=== PATIENT | female | born 1975 | race Caucasian/White ===

== ENCOUNTER → 2018-02-01 11:49 | Outpatient (CLI) | payer OTHER, SELFPAY ==
--- NOTE | 2018-02-01 11:54 | BI_ITS ---
MAMMOGRAPHY - BILATERAL SCREENING REASON FOR EXAM: Female, 42 years old. Routine annual screening examination. PERTINENT HISTORY: Non-contributory. TECHNIQUE: Digital bilateral breast zoila (3D mammographic acquisition) in the CC and MLO projections. 2-D mediolateral oblique (MLO) and craniocaudad (CC) views of both breasts were obtained. CAD: Full Field Digital Mammography with Computer Added Detection was performed. COMPARISON: Comparison is made with prior study dated December 31, 2016. FINDINGS: Breast Composition: There are scattered areas of fibroglandular density. There are no dominant masses or suspicious calcifications. No other significant abnormalities are identified. There has been no significant change since the prior study. BI/SCREENING MAMM (CAD), BILAT IMPRESSION: Stable bilateral screening mammogram. Yearly follow-up mammogram recommended. (A) ASSESSMENT CATEGORY: BIRADS Category 1: Negative. A letter regarding these results will be sent to the patient by the facility within 30 days. Approximately 10% of breast cancers are not detected by mammography. A normal mammogram should not delay biopsy of a clinically suspicious abnormality. [id number] Electronically Signed: Davi Mcgovern MD at 13:20 EST Tel [phone], Service support ,
== END ==
PROVIDERS: Family Provider Family Medicine; PCP Family Medicine; Visit Provider Nurse Practitioner Women's Health
DX: Z12.31 Encounter for screening mammogram for malignant neoplasm of breast (principal)
CPT/HCPCS: 77063; 77067

== ENCOUNTER → 2018-07-01 08:49 | Outpatient (CLI) | payer OTHER, SELFPAY ==
[2018-07-01 10:28] LABS: Hematocrit 39.3 % (37-47); Hemoglobin 12.6 g/dl (12.0-15.0); Mean Corp Hgb Conc 32.1 g/gl (32-36); Mean Corpuscular Hgb 26.1 pg (27.0-32.0); Mean Corpuscular Volume 81.4 fL (81-99); Mean Platelet Vol. 10.2 fl (6.2-12.0); Platelet Count 283 K/mm3 (150-450); RBC Distribution Width CV 13.1 % (11.6-14.6); Red Blood Count 4.83 M/mm3 (4.2-5.4)
[2018-07-01 10:35] LABS: Scan Indicated on CBC? Y/N NO
[2018-07-01 10:55] LABS: Homocysteine 8.3 umol/L (3.2-10.7)
[2018-07-01 10:56] LABS: Hemoglobin A1c 5.5 % (4.2-6.3)
[2018-07-01 11:14] LABS: Progesterone Level 0.47 ng/mL (See Comment); Vitamin B12 639 pg/mL (211-911); Vitamin D,25 Hydroxy 32.4 ng/mL (29.95-100.01)
[2018-07-01 12:12] LABS: AST(SGOT) 26 U/L (15-37); Alanine Aminotransfer ALT/SGPT 27 U/L (13-56); Albumin, Serum 3.9 g/dL (3.2-5.0); Alkaline Phosphatase 56 U/L (45-117); Anion Gap 6 (5-15); BUN 18 mg/dL (7-18); BUN/Creat Ratio 15.5 RATIO (10-20); CRP, High Sensitivity Cardiac 2.88 mg/L; Calcium,Total 8.9 mg/dL (8.5-10.1); Chloride 106 mmol/L (98-107); Cholesterol 196 mg/dL (200); Creatinine, Serum 1.16 mg/dL (0.55-1.02); EST Glomerular Filtration Rate 55 mL/min (>60); Est Glom Filt Rate - Afr Amer 66 mL/min (>60); Estradiol 43.4 pg/mL; Free T3 2.5 pg/mL (2.18-3.98); Globulin 3.8 g/dL (2.2-4.2); Glucose 90 mg/dL (74-106); High Density Lipoprotein 47 mg/dL; Iron 56 ug/dL (50-170); Luteinizing Hormone 6.1 mIU/mL; Magnesium 2.3 mg/dL (1.6-2.6); Potassium 3.9 mmol/L (3.5-5.1); Prolactin 7.7 ng/mL; Protein, Total 7.7 g/dL (6.4-8.2); Sodium Level 139 mmol/L (136-145); T4 Free Direct 1.15 ng/dL (0.76-1.46); T4 Total, Thyroxin 10.9 ug/dL (4.8-13.9); Thyroid Stim Hormone (TSH) 3.25 uIU/mL (0.358-3.74); Triglycerides 167 mg/dL; Very Low Density Lipoprotein 33 mg/dL (5-40)
[2018-07-02 09:21] LABS: Follicle Stimulating Hormone 8.5 mIU/mL
[2018-07-04 09:07] LABS: DHEA Sulfate 163.5 ug/dL (57.3-279.2); Insulin Like Growth Factor 82 ng/mL (62-204); Testosterone, % Free 1.77 % (0.50-2.80); Testosterone, Free 0.23 ng/dL (0.10-0.85); Testosterone, Total 13 ng/dL (8-48)
[2018-07-04 11:58] LABS: Sex Hormone-binding Globulin 74.6 nmol/L (24.6-122.0)
== END ==
PROVIDERS: Family Provider Family Medicine; PCP Family Medicine; Referring Provider Registered Nurse; Visit Provider Registered Nurse
DX: M62.81 Muscle weakness (generalized) (principal); R53.82 Chronic fatigue, unspecified; R45.89 Other symptoms and signs involving emotional state
CPT/HCPCS: 36415; 80053; 80061; 82306; 82533; 82607; 82627; 82670; 82746; 83001; 83002; 83036; 83090; 83540; 83735; 84144; 84146; 84270; 84305; 84402; 84403; 84436; 84439; 84443; 84481; 85027; 86141; 82626

== ENCOUNTER → 2018-10-04 07:10 | Outpatient (CLI) | payer OTHER, SELFPAY ==
[2018-10-04 10:07] LABS: Hematocrit 39.3 % (37-47); Hemoglobin 12.3 g/dL (12.0-15.0); Mean Corp Hgb Conc 31.3 g/dL (32-36); Mean Corpuscular Hgb 25.5 pg (27.0-32.0); Mean Corpuscular Volume 81.4 fL (81-99); Mean Platelet Vol. 10.6 fl (6.2-12.0); Platelet Count 226 K/mm3 (150-450); RBC Distribution Width CV 14.6 % (11.6-14.6); RBC Distribution Width SD 42.7 fl (35.1-43.9); Red Blood Count 4.83 M/mm3 (4.2-5.4); White Blood Count 5.7 K/mm3 (4.4-11.0)
[2018-10-04 10:29] LABS: Vitamin B12 405 pg/mL (211-911); Vitamin D,25 Hydroxy 51.9 ng/mL (29.95-100.01)
[2018-10-04 10:38] LABS: ALB/GLOB Ratio 0.9 RATIO (0.9-2.4); AST(SGOT) 13 U/L (15-37); Alanine Aminotransfer ALT/SGPT 18 U/L (13-56); Albumin, Serum 3.3 g/dL (3.2-5.0); Alkaline Phosphatase 50 U/L (45-117); Anion Gap 5 (5-15); BUN 18 mg/dL (7-18); BUN/Creat Ratio 19.2 RATIO (10-20); Calcium,Total 8.7 mg/dL (8.5-10.1); Chloride 110 mmol/L (98-107); Cholesterol 157 mg/dL (200); Creatinine, Serum 0.94 mg/dL (0.55-1.02); EST Glomerular Filtration Rate 70 mL/min (>60); Est Glom Filt Rate - Afr Amer 84 mL/min (>60); Estradiol 88.7 pg/mL; Free T3 4.2 pg/mL (2.18-3.98); Globulin 3.5 g/dL (2.2-4.2); Glucose 89 mg/dL (74-106); High Density Lipoprotein 51 mg/dL; Iron 19 ug/dL (50-170); Protein, Total 6.8 g/dL (6.4-8.2); Sodium Level 141 mmol/L (136-145); T4 Free Direct 0.61 ng/dL (0.76-1.46); T4 Total, Thyroxin 5.8 ug/dL (4.8-13.9); Thyroid Stim Hormone (TSH) 1.66 uIU/mL (0.358-3.74); Triglycerides 131 mg/dL; Very Low Density Lipoprotein 26 mg/dL (5-40)
[2018-10-07 09:07] LABS: Testosterone, % Free 1.03 % (0.50-2.80); Testosterone, Free 0.27 ng/dL (0.10-0.85); Testosterone, Total 26 ng/dL (8-48)
[2018-10-07 15:35] LABS: DHEA Sulfate 126.8 ug/dL (57.3-279.2)
== END ==
PROVIDERS: Family Provider Family Medicine; PCP Family Medicine
DX: R53.82 Chronic fatigue, unspecified (principal); R68.82 Decreased libido
CPT/HCPCS: 36415; 80053; 80061; 82306; 82607; 82627; 82670; 82746; 83540; 84144; 84402; 84403; 84436; 84439; 84443; 84481; 85027; 82626

== ENCOUNTER → 2019-01-13 08:07 | Outpatient (CLI) | payer OTHER, SELFPAY ==
[2018-12-27 08:19] VITALS: BMI 29.7
[2019-01-13 10:09] LABS: Hematocrit 44.9 % (37-47); Hemoglobin 14.7 g/dL (12.0-15.0); Mean Corp Hgb Conc 32.7 g/dL (32-36); Mean Corpuscular Hgb 28.6 pg (27.0-32.0); Mean Corpuscular Volume 87.4 fL (81-99); Mean Platelet Vol. 10.4 fl (6.2-12.0); Platelet Count 246 K/mm3 (150-450); RBC Distribution Width CV 13.7 % (11.6-14.6); RBC Distribution Width SD 44.1 fl (35.1-43.9); RET-HE 35.2 pg (30-35); Red Blood Count 5.14 M/mm3 (4.2-5.4)
[2019-01-13 10:37] LABS: Cholesterol 211 mg/dL (200); Ferritin 22 ng/mL (8-252); High Density Lipoprotein 52 mg/dL; Iron 85 ug/dL (50-170); Triglycerides 178 mg/dL; Very Low Density Lipoprotein 36 mg/dL (5-40)
== END ==
PROVIDERS: Family Provider Family Medicine; PCP Family Medicine; Referring Provider Family Medicine; Visit Provider Family Medicine
DX: D64.9 Anemia, unspecified (principal); E78.5 Hyperlipidemia, unspecified
CPT/HCPCS: 36415; 80061; 82728; 83540; 85027; 85045

== ENCOUNTER → 2019-02-02 12:18 | Outpatient (CLI) | payer OTHER, SELFPAY ==
[2018-12-27 08:19] VITALS: BMI 29.7
--- NOTE | 2019-02-02 12:19 | BI_ITS ---
MAMMOGRAPHY - BILATERAL SCREENING REASON FOR EXAM: Female, 43 years old. Routine annual screening examination. PERTINENT HISTORY: Non-contributory. TECHNIQUE: Digital bilateral breast yolanda (3D mammographic acquisition) in the CC and MLO projections. 2-D mediolateral oblique (MLO) and craniocaudad (CC) views of both breasts were obtained. CAD: Full Field Digital Mammography with Computer Added Detection was performed. COMPARISON: Comparison is made with prior study dated February 01, 2018 and December 31, 2016. FINDINGS: Breast Composition: There are scattered areas of fibroglandular density. There are no dominant masses or suspicious calcifications. No other significant abnormalities are identified. There has been no significant change since the prior study. BI/SCREEN MAMM (CAD) W/YOLANDA BILAT IMPRESSION: Stable bilateral screening mammogram. Yearly follow-up mammogram recommended. (A) ASSESSMENT CATEGORY: BIRADS Category 1: Negative. A letter regarding these results will be sent to the patient by the facility within 30 days. Approximately 10% of breast cancers are not detected by mammography. A normal mammogram should not delay biopsy of a clinically suspicious abnormality. [id number] Electronically Signed: Davi Mcgovern, at 13:24 EST , Service support ,
== END ==
PROVIDERS: Family Provider Family Medicine; PCP Family Medicine; Referring Provider Nurse Practitioner Women's Health; Visit Provider Nurse Practitioner Women's Health
DX: Z12.31 Encounter for screening mammogram for malignant neoplasm of breast (principal)
CPT/HCPCS: 77063; 77067

== ENCOUNTER → 2019-04-12 07:22 | Outpatient (CLI) | payer OTHER, SELFPAY ==
[2018-12-27 08:19] VITALS: BMI 29.7
[2019-04-12 10:15] LABS: Absolute Lymphocyte Count 2.05 X10^3/uL (0.83-4.51); Absolute Neutrophil Count 4.1 X10^3/uL (2.0-7.7); Basophil% 1.4 % (0-1); Eosinophil# 0.23 X10^3/uL; Eosinophils% 3.2 % (0-5); Hematocrit 44.1 % (37-47); Hemoglobin 14.8 g/dL (12.0-15.0); Lymphocyte # 2.05 X10^3/ul (4.0); Lymphocyte % 28.7 % (19-41); Mean Corp Hgb Conc 33.6 g/dL (32-36); Mean Corpuscular Hgb 29.9 pg (27.0-32.0); Mean Corpuscular Volume 89.1 fL (81-99); Monocyte# 0.64 X10^3/uL; NRBC Flagged by Analyzer 0 % (0-5); Neutrophil # 4.11 X10^3/uL (2.7-7.7); Neutrophil % 57.6 % (47-70); Platelet Count 253 K/mm3 (150-450); RBC Distribution Width CV 12.2 % (11.6-14.6); RBC Distribution Width SD 39.5 fl (35.1-43.9); Red Blood Count 4.95 M/mm3 (4.2-5.4); White Blood Count 7.1 K/mm3 (4.4-11.0)
[2019-04-12 10:29] LABS: Color, Urine Yellow (Yellow); Glucose, Dipstick Normal (Normal); Ketone-Dipstick Negative (Negative); Leukocyte Esterase-Dipstick Negative /ul (Negative); Nitrite-Dipstick Negative (Negative); Occult Blood-Urine Negative /ul (Negative); Protein-Dipstick Negative (Negative); Specific Gravity, Urine 1.015 (1.002-1.030); Urine Bilirubin Dipstick Negative (Negative); Urine Clarity Sl. Cloudy (Clear); Urine Urobilinogen Normal (Normal)
[2019-04-12 10:35] LABS: AST(SGOT) 17 U/L (15-37); Alanine Aminotransfer ALT/SGPT 27 U/L (13-56); Albumin, Serum 3.7 g/dL (3.2-5.0); Alkaline Phosphatase 48 U/L (45-117); Anion Gap 4 (5-15); BUN 15 mg/dL (7-18); BUN/Creat Ratio 13.8 RATIO (10-20); Chloride 107 mmol/L (98-107); Cholesterol 207 mg/dL (200); Creatinine, Serum 1.09 mg/dL (0.55-1.02); EST Glomerular Filtration Rate 58 mL/min (>60); Est Glom Filt Rate - Afr Amer 71 mL/min (>60); Globulin 3.7 g/dL (2.2-4.2); Glucose 89 mg/dL (74-106); High Density Lipoprotein 54 mg/dL; Potassium 3.7 mmol/L (3.5-5.1); Protein, Total 7.4 g/dL (6.4-8.2); Sodium Level 139 mmol/L (136-145); Triglycerides 203 mg/dL; Very Low Density Lipoprotein 41 mg/dL (5-40)
[2019-04-12 10:36] LABS: BNP,B-Type NATRIURETIC PEPTIDE 4.2 pg/mL (0-100)
[2019-04-14 21:39] LABS: G6PD Quant Test 271 (146-376)
== END ==
PROVIDERS: PCP Family Medicine; Referring Provider Nurse Practitioner Family; Visit Provider Nurse Practitioner Family
DX: M62.81 Muscle weakness (generalized) (principal); R53.82 Chronic fatigue, unspecified
CPT/HCPCS: 36415; 80053; 80061; 81002; 82306; 82955; 83880; 85025

== ENCOUNTER → 2019-09-26 08:12 | Outpatient (CLI) | payer OTHER, SELFPAY ==
[2018-12-27 08:19] VITALS: BMI 29.7
[2019-09-26 10:17] LABS: Cholesterol 181 mg/dL (200); High Density Lipoprotein 49 mg/dL; Triglycerides 201 mg/dL; Very Low Density Lipoprotein 40 mg/dL (5-40)
== END ==
PROVIDERS: PCP Family Medicine; Referring Provider Nurse Practitioner Family; Visit Provider Nurse Practitioner Family
DX: E78.5 Hyperlipidemia, unspecified (principal)
CPT/HCPCS: 36415; 80061

== ENCOUNTER → 2019-09-29 08:18 | Outpatient (CLI) | payer OTHER, SELFPAY ==
[2018-12-27 08:19] VITALS: BMI 29.7
[2019-09-29 09:52] LABS: Hematocrit 43.1 % (37-47); Hemoglobin 14.3 g/dL (12.0-15.0); Mean Corp Hgb Conc 33.2 g/dL (32-36); Mean Corpuscular Hgb 28.6 pg (27.0-32.0); Mean Corpuscular Volume 86.2 fL (81-99); Mean Platelet Vol. 10.8 fl (6.2-12.0); Platelet Count 268 K/mm3 (150-450); RBC Distribution Width CV 12.4 % (11.6-14.6); RBC Distribution Width SD 38.5 fl (35.1-43.9); White Blood Count 5.8 K/mm3 (4.4-11.0)
[2019-09-29 10:13] LABS: Hemoglobin A1c 5.1 % (3.8-5.6)
[2019-09-29 10:43] LABS: AST(SGOT) 17 U/L (15-37); Alanine Aminotransfer ALT/SGPT 20 U/L (13-56); Albumin, Serum 3.7 g/dL (3.2-5.0); Alkaline Phosphatase 55 U/L (45-117); Anion Gap 4 (5-15); BUN 18 mg/dL (7-18); BUN/Creat Ratio 17.6 RATIO (10-20); Calcium,Total 8.9 mg/dL (8.5-10.1); Chloride 112 mmol/L (98-107); Creatinine, Serum 1.02 mg/dL (0.55-1.02); EST Glomerular Filtration Rate 63 mL/min (>60); Est Glom Filt Rate - Afr Amer 76 mL/min (>60); Follicle Stimulating Hormone 5.4 mIU/mL; Free T3 2.7 pg/mL (2.18-3.98); Globulin 3.8 g/dL (2.2-4.2); Glucose 90 mg/dL (74-106); Iron 120 ug/dL (50-170); Luteinizing Hormone 8.2 mIU/mL; Magnesium 2.1 mg/dL (1.6-2.6); Potassium 3.9 mmol/L (3.5-5.1); Progesterone Level 3.89 ng/mL (See Comment); Protein, Total 7.5 g/dL (6.4-8.2); Sodium Level 140 mmol/L (136-145); T4 Free Direct 1.05 ng/dL (0.76-1.46); T4 Total, Thyroxin 9.6 ug/dL (4.8-13.9); Thyroid Stim Hormone (TSH) 2.98 uIU/mL (0.358-3.74); Vitamin B12 969 pg/mL (211-911)
[2019-09-29 17:52] LABS: Homocysteine 6.7 umol/L (3.2-10.7)
[2019-10-03 09:08] LABS: Insulin Like Growth Factor 104 ng/mL (74-239); Testosterone, % Free 1.15 % (0.50-2.80); Testosterone, Free 0.15 ng/dL (0.10-0.85); Testosterone, Total 13 ng/dL (8-48)
[2019-10-03 16:59] LABS: Sex Hormone-binding Globulin 69.5 nmol/L (24.6-122.0)
== END ==
PROVIDERS: PCP Family Medicine; Referring Provider Nurse Practitioner Family; Visit Provider Nurse Practitioner Family
DX: R53.82 Chronic fatigue, unspecified (principal); M62.81 Muscle weakness (generalized); R68.82 Decreased libido
CPT/HCPCS: 36415; 80053; 82306; 82533; 82607; 82627; 82670; 82746; 83001; 83002; 83036; 83090; 83540; 83735; 84144; 84146; 84270; 84305; 84402; 84403; 84436; 84439; 84443; 84481; 85027; 86141; 82626

== ENCOUNTER → 2020-01-01 08:20 | Outpatient (CLI) | payer OTHER, SELFPAY ==
[2020-01-01 08:13] VITALS: BMI 29.8
[2020-01-08 16:48] LABS: HPV APTIMA, High Risk Negative (Negative)
== END ==
PROVIDERS: PCP Family Medicine; Referring Provider Nurse Practitioner Women's Health; Visit Provider Nurse Practitioner Women's Health
DX: Z12.4 Encounter for screening for malignant neoplasm of cervix (principal)
CPT/HCPCS: 87624; 88175; G0145

== ENCOUNTER → 2020-02-26 07:59 | Outpatient (CLI) | payer OTHER, SELFPAY ==
[2018-12-27 08:19] VITALS: BMI 29.7
[2020-01-01 08:13] VITALS: BMI 29.8
--- NOTE | 2020-02-26 08:03 | BI_ITS ---
MAMMOGRAPHY - BILATERAL SCREENING REASON FOR EXAM: Female, 44 years old. Routine annual screening examination. PERTINENT HISTORY: Non-contributory. TECHNIQUE: Digital bilateral breast yolanda (3D mammographic acquisition) in the CC and MLO projections. 2-D mediolateral oblique (MLO) and craniocaudad (CC) views of both breasts were obtained. CAD: Full Field Digital Mammography with Computer Added Detection was performed. COMPARISON: 02/02/2019 and 02/01/2018 and 12/31/2016 FINDINGS: Breast Composition: There are scattered areas of fibroglandular density. There are no dominant masses or suspicious calcifications. No other significant abnormalities are identified. BI/SCREEN MAMM (CAD) W/YOLANDA BILAT IMPRESSION: Stable bilateral screening mammogram. Yearly follow-up mammogram recommended. (A) ASSESSMENT CATEGORY: BIRADS Category 2: Benign. A letter regarding these results will be sent to the patient by the facility within 30 days. Approximately 10% of breast cancers are not detected by mammography. A normal mammogram should not delay biopsy of a clinically suspicious abnormality. [id number] Electronically Signed: Patrick Howell, at 15:17 EST Tel , Service support ,
== END ==
PROVIDERS: PCP Family Medicine; Referring Provider Nurse Practitioner Women's Health; Visit Provider Nurse Practitioner Women's Health
DX: Z12.31 Encounter for screening mammogram for malignant neoplasm of breast (principal)
CPT/HCPCS: 77063; 77067

== ENCOUNTER → 2020-08-13 09:17 | Outpatient (CLI) | payer OTHER, SELFPAY ==
[2020-01-01 08:13] VITALS: BMI 29.8
[2020-08-13 11:10] LABS: Anion Gap 7 (5-15); BUN 12 mg/dL (7-18); BUN/Creat Ratio 11.7 RATIO (10-20); Calcium,Total 8.9 mg/dL (8.5-10.1); Chloride 108 mmol/L (98-107); Cholesterol 169 mg/dL (200); Creatinine, Serum 1.03 mg/dL (0.55-1.02); EST Glomerular Filtration Rate 62 mL/min (>60); Est Glom Filt Rate - Afr Amer 75 mL/min (>60); Glucose 90 mg/dL (74-106); High Density Lipoprotein 59 mg/dL; Potassium 3.8 mmol/L (3.5-5.1); Sodium Level 139 mmol/L (136-145); Thyroid Stim Hormone (TSH) 3.75 uIU/mL (0.358-3.74); Triglycerides 85 mg/dL; Very Low Density Lipoprotein 17 mg/dL (5-40)
== END ==
PROVIDERS: PCP Family Medicine; Referring Provider Family Medicine; Visit Provider Family Medicine
DX: Z13.1 Encounter for screening for diabetes mellitus (principal); Z13.220 Encounter for screening for lipoid disorders
CPT/HCPCS: 36415; 80048; 80061; 84443

== ENCOUNTER → 2020-11-21 07:30 | Outpatient (CLI) | payer OTHER, SELFPAY ==
[2020-11-21 11:05] LABS: Anion Gap 4 (5-15); BUN 14 mg/dL (7-18); BUN/Creat Ratio 14.8 RATIO (10-20); Calcium,Total 8.8 mg/dL (8.5-10.1); Chloride 108 mmol/L (98-107); Creatinine, Serum 0.94 mg/dL (0.55-1.02); EST Glomerular Filtration Rate 69 mL/min (>60); Est Glom Filt Rate - Afr Amer 83 mL/min (>60); Glucose 87 mg/dL (74-106); Potassium 3.9 mmol/L (3.5-5.1); Sodium Level 139 mmol/L (136-145); T4 Free Direct 1.01 ng/dL (0.76-1.46)
== END ==
PROVIDERS: PCP Family Medicine; Referring Provider Family Medicine; Visit Provider Family Medicine
DX: Z13.29 Encounter for screening for other suspected endocrine disorder (principal)
CPT/HCPCS: 36415; 80048; 84439; 84443

== ENCOUNTER → 2021-02-26 07:59 | Outpatient (CLI) | payer OTHER, SELFPAY ==
[2020-01-01 08:13] VITALS: BMI 29.8
--- NOTE | 2021-02-26 08:00 | BI_ITS ---
MAMMOGRAPHY - BILATERAL SCREENING 3-D TOMOSYNTHESIS REASON FOR EXAM: Female, 45 years old. screening for breast cancer PERTINENT HISTORY: No significant family history. TECHNIQUE: 2-D mammograms and 3-D Tomosynthesis of the breast (s) were performed. CAD was performed. COMPARISON: 02/26/2020 FINDINGS: The breast composition is composed of scattered fibroglandular density. Scattered benign calcifications are seen. No dense spiculated masses or suspicious microcalcifications are identified. No architectural distortion is identified. There is no skin thickening or retraction. There has been no significant change since the prior study. BI/SCRN MAMM (CAD)W/YOLANDA BILAT IMPRESSION: No mammographic signs of malignancy. Routine yearly mammograms recommended. ASSESSMENT CATEGORY: BIRADS Category 1: Negative. A letter regarding these results will be sent to the patient by the facility within 30 days. FOLLOW UP RECOMMENDATION: Yearly follow up mammogram recommended. (A) Approximately 10% of breast cancers are not detected by mammography. A normal mammogram should not delay biopsy of a clinically suspicious abnormality. Electronically Signed: Jose Luis Infante MD at 10:22 EST Tel , Service support ,
== END ==
PROVIDERS: PCP Family Medicine; Referring Provider Nurse Practitioner Women's Health; Visit Provider Nurse Practitioner Women's Health
DX: Z12.31 Encounter for screening mammogram for malignant neoplasm of breast (principal)
CPT/HCPCS: 77063; 77067

== ENCOUNTER → 2022-02-27 | Outpatient (CLI) | payer OTHER, SELFPAY ==
--- NOTE | 2022-02-27 07:11 | BI_ITS ---
MAMMOGRAPHY - BILATERAL SCREENING REASON FOR EXAM: Female, 46 years old. Routine annual screening examination. PERTINENT HISTORY: Non-contributory. TECHNIQUE: Digital bilateral breast yolanda (3D mammographic acquisition) in the CC and MLO projections. 2-D mediolateral oblique (MLO) and craniocaudad (CC) views of both breasts were obtained. CAD: Full Field Digital Mammography with Computer Added Detection was performed. COMPARISON: 02/26/2021, 02/26/2020. FINDINGS: Breast Composition: There are scattered areas of fibroglandular density. There are no dominant masses or suspicious calcifications. No other significant abnormalities are identified. There has been no significant change since the prior study. BI/SCRN MAMM (CAD)W/YOLANDA BILAT IMPRESSION: Stable bilateral screening mammogram. Yearly follow-up mammogram recommended. (A) ASSESSMENT CATEGORY: BIRADS Category 1: Negative. A letter regarding these results will be sent to the patient by the facility within 30 days. Approximately 10% of breast cancers are not detected by mammography. A normal mammogram should not delay biopsy of a clinically suspicious abnormality. Electronically Signed: Toño Robledo, at 16:00 EST ,
== END | disposition home or self-care (01) ==
LOC: OPBI 07:09
PROVIDERS: PCP Family Medicine; Referring Provider Nurse Practitioner Women's Health; Visit Provider Nurse Practitioner Women's Health
DX: Z12.31 Encounter for screening mammogram for malignant neoplasm of breast (principal)
CPT/HCPCS: 77063; 77067

== ENCOUNTER → 2022-03-12 | Outpatient (CLI) | payer OTHER, SELFPAY ==
[2022-03-12 10:06] LABS: Erythrocyte Sedimentation Rate 8 mm/hr (0-30)
[2022-03-12 10:14] LABS: Hematocrit 43.1 % (37-47); Mean Corp Hgb Conc 32.5 g/dL (32-36); Mean Corpuscular Hgb 28.2 pg (27.0-32.0); Mean Corpuscular Volume 86.7 fL (81-99); Mean Platelet Vol. 10.5 fl (6.2-12.0); Platelet Count 221 K/mm3 (150-450); RBC Distribution Width CV 12.8 % (11.6-14.6); RBC Distribution Width SD 39.9 fl (35.1-43.9); Red Blood Count 4.97 M/mm3 (4.2-5.4); White Blood Count 6.1 K/mm3 (4.4-11.0)
[2022-03-12 10:31] LABS: Vitamin B12 798 pg/mL (211-911); Vitamin D,25 Hydroxy 35.2 ng/mL
[2022-03-12 10:40] LABS: ALB/GLOB Ratio 1.1 RATIO (0.9-2.4); AST(SGOT) 16 U/L (15-37); Alanine Aminotransfer ALT/SGPT 21 U/L (13-56); Albumin, Serum 3.7 g/dL (3.2-5.0); Alkaline Phosphatase 46 U/L (45-117); Anion Gap 8 (5-15); BUN 17 mg/dL (7-18); BUN/Creat Ratio 15.9 RATIO (10-20); Chloride 109 mmol/L (98-107); Cholesterol 221 mg/dL (200); Creatinine, Serum 1.07 mg/dL (0.55-1.02); EST Glomerular Filtration Rate 59 mL/min (>60); Est Glom Filt Rate - Afr Amer 71 mL/min (>60); Globulin 3.4 g/dL (2.2-4.2); Glucose 92 mg/dL (74-106); High Density Lipoprotein 55 mg/dL; Iron 61 ug/dL (50-170); Potassium 4.2 mmol/L (3.5-5.1); Protein, Total 7.1 g/dL (6.4-8.2); Sodium Level 140 mmol/L (136-145); Thyroid Stim Hormone (TSH) 2.89 uIU/mL (0.358-3.74); Triglycerides 109 mg/dL; Very Low Density Lipoprotein 22 mg/dL (5-40)
[2022-03-16 15:07] LABS: PROEL- Albumin 3.6 g/dL (2.9-4.4); PROEL- Alpha-1 Globulin 0.3 g/dL (0.0-0.4); PROEL- Alpha-2 Globulin 0.8 g/dL (0.4-1.0); PROEL- Beta Globulin 1.2 g/dL (0.7-1.3); PROEL- Gamma Globulin 1.3 g/dL (0.4-1.8); PROEL- Globulin, Total 3.6 g/dL (2.2-3.9); PROEL- TOTAL PROTEIN 7.2 g/dL (6.0-8.5)
[2022-03-16 21:29] LABS: ANTINUCLEAR ANTIBODIES DIRECT Negative (Negative)
== END | disposition home or self-care (01) ==
LOC: MFPLAB 08:57
PROVIDERS: PCP Family Medicine; Referring Provider Family Medicine; Visit Provider Family Medicine
DX: R53.83 Other fatigue (principal)
CPT/HCPCS: 36415; 80053; 80061; 82306; 82607; 83540; 84165; 84443; 85027; 85652; 86038

== ENCOUNTER → 2022-03-20 | Outpatient (CLI) | payer OTHER, SELFPAY ==
--- NOTE | 2022-03-20 14:19 | US_ITS ---
STUDY: RENAL ULTRASOUND - COMPLETE REASON FOR EXAM: Female, 46 years old. Decreased renal function TECHNIQUE: Ultrasound evaluation of the kidneys was performed with real-time and static mclaughlin-scale imaging. COMPARISON: None. FINDINGS: RIGHT KIDNEY: Normal location of the right kidney, which is normal in size. The right kidney measures 9.7 cm x 4.7 cm x 4.4 cm. There is a normal cortex of the right kidney. The renal cortex measures 1.7 cm. There is no right renal mass or cyst. There are no right renal calculi. There is no right hydronephrosis. DISTAL RIGHT URETER: There is non-visualization of the distal right ureter. There is no demonstrated right ureterovesical junction calculus. There is a visualized right ureteral jet. LEFT KIDNEY: Normal location of the left kidney, which is normal in size. The left kidney measures 10.5 cm x 5.7 cm x 5.9 cm. There is a normal cortex of the left kidney. The renal cortex measures 2.2 cm. There is no left renal mass or cyst. There are no left renal calculi. There is no left hydronephrosis. DISTAL LEFT URETER: There is non-visualization of the distal left ureter. There is no demonstrated left ureterovesical junction calculus. There is a visualized left ureteral jet. BLADDER: The distended urinary bladder has a volume of 231 ml. There is a normal wall thickness of the distended urinary bladder. There is no demonstrated mass within the urinary bladder. There are no demonstrated bladder calculi. US/Kidney and Bladder IMPRESSION: Normal ultrasound of the kidneys and urinary bladder. Electronically Signed: Davi Mcgovern MD at 15:19 EST ,
== END | disposition home or self-care (01) ==
PROVIDERS: PCP Family Medicine; Referring Provider Family Medicine; Visit Provider Family Medicine
DX: N28.9 Disorder of kidney and ureter, unspecified (principal)
CPT/HCPCS: 76770

== ENCOUNTER → 2022-03-27 | Outpatient (CLI) | payer OTHER, SELFPAY ==
[2022-03-27 17:50] LABS: Microalbumin,Random Urine < 5.0 mg/L (NO RANGE EST.)
== END | disposition home or self-care (01) ==
LOC: LABSPEC 15:02
PROVIDERS: PCP Family Medicine; Referring Provider Family Medicine; Visit Provider Family Medicine
DX: N28.9 Disorder of kidney and ureter, unspecified (principal)
CPT/HCPCS: 82043

== ENCOUNTER → 2022-12-25 | Outpatient (CLI) | payer OTHER, SELFPAY ==
--- NOTE | 2022-12-25 07:41 | BI_ITS ---
MAMMOGRAPHY - BILATERAL SCREENING REASON FOR EXAM: Female, 47 years old. Routine annual screening examination. PERTINENT HISTORY: Non-contributory. TECHNIQUE: Digital bilateral breast yolanda (3D mammographic acquisition) in the CC and MLO projections. 2-D mediolateral oblique (MLO) and craniocaudad (CC) views of both breasts were obtained. CAD: Full Field Digital Mammography with Computer Added Detection was performed. COMPARISON: Comparison is made with prior study dated February 27, 2022 and February 26, 2021. FINDINGS: Breast Composition: There are scattered areas of fibroglandular density. There are no dominant masses or suspicious calcifications. No other significant abnormalities are identified. There has been no significant change since the prior study. BI/SCRN MAMM (CAD)W/YOLANDA BILAT IMPRESSION: Stable bilateral screening mammogram. Yearly follow-up mammogram recommended. (A) ASSESSMENT CATEGORY: BIRADS Category 1: Negative. A letter regarding these results will be sent to the patient by the facility within 30 days. Approximately 10% of breast cancers are not detected by mammography. A normal mammogram should not delay biopsy of a clinically suspicious abnormality. [id number] Electronically Signed: Davi Mcgovern MD at 8:45 EDT ,
== END | disposition home or self-care (01) ==
LOC: OPBI 07:40
PROVIDERS: PCP Family Medicine; Referring Provider Nurse Practitioner Women's Health; Visit Provider Nurse Practitioner Women's Health
DX: Z12.31 Encounter for screening mammogram for malignant neoplasm of breast (principal)
CPT/HCPCS: 77063; 77067

== ENCOUNTER → 2023-01-12 | Outpatient (CLI) | payer OTHER, SELFPAY | END | disposition home or self-care (01) | LOC: LABSPEC 11:29 | PROVIDERS: PCP Family Medicine; Referring Provider Nurse Practitioner Women's Health; Visit Provider Nurse Practitioner Women's Health | DX: N89.8 Other specified noninflammatory disorders of vagina (principal) | CPT/HCPCS: 87070; 87205 ==

== ENCOUNTER → 2023-09-04 | Outpatient (CLI) | payer OTHER, SELFPAY ==
[2023-09-04 08:52] LABS: Absolute Lymphocyte Count 2.18 X10^3/uL (0.83-4.51); Absolute Neutrophil Count 3.4 X10^3/uL (2.0-7.7); Basophil% 1.6 % (0-1); Eosinophil# 0.19 X10^3/uL; Hematocrit 40.8 % (37-47); Hemoglobin 13.3 g/dL (12.0-15.0); Lymphocyte # 2.18 X10^3/ul (0.83-4.51); Lymphocyte % 33.9 % (19-41); Mean Corp Hgb Conc 32.6 g/dL (32-36); Mean Corpuscular Hgb 28.3 pg (27.0-32.0); Mean Corpuscular Volume 86.8 fL (81-99); Mean Platelet Vol. 9.9 fl (6.2-12.0); Monocyte# 0.55 X10^3/uL; Monocyte% 8.6 % (0-10); NRBC Flagged by Analyzer 0 % (0-5); Neutrophil # 3.39 X10^3/uL (2.7-7.7); Neutrophil % 52.6 % (47-70); Platelet Count 259 K/mm3 (150-450); RBC Distribution Width CV 12.2 % (11.6-14.6); RBC Distribution Width SD 38.7 fl (35.1-43.9); White Blood Count 6.4 K/mm3 (4.4-11.0)
[2023-09-04 09:27] LABS: AST(SGOT) 18 U/L (15-37); Alanine Aminotransfer ALT/SGPT 25 U/L (13-56); Albumin, Serum 3.6 g/dL (3.2-5.0); Alkaline Phosphatase 52 U/L (45-117); Anion Gap 6 (5-15); BUN 15 mg/dL (7-18); BUN/Creat Ratio 13.4 RATIO (10-20); Calcium,Total 8.8 mg/dL (8.5-10.1); Chloride 106 mmol/L (98-107); Creatinine, Serum 1.12 mg/dL (0.55-1.02); EST Glomerular Filtration Rate 56 mL/min (>60); Est Glom Filt Rate - Afr Amer 67 mL/min (>60); Ferritin 11 ng/mL (8-252); Free T3 3.3 pg/mL (2.18-3.98); Globulin 3.7 g/dL (2.2-4.2); Glucose 91 mg/dL (74-106); Potassium 4.1 mmol/L (3.5-5.1); Protein, Total 7.3 g/dL (6.4-8.2); Sodium Level 137 mmol/L (136-145); Thyroid Stim Hormone (TSH) 1.59 uIU/mL (0.358-3.74)
[2023-09-05 07:07] LABS: Thyroid Peroxidase AB 202 IU/mL (0-34)
[2023-09-06 13:37] LABS: Vitamin D,25 Hydroxy 68.3 ng/mL
== END | disposition home or self-care (01) ==
LOC: LAB 08:19
PROVIDERS: PCP Family Medicine; Referring Provider Family Medicine; Visit Provider Family Medicine
DX: R53.83 Other fatigue (principal); E06.3 Autoimmune thyroiditis; R06.02 Shortness of breath
CPT/HCPCS: 36415; 80053; 82306; 82728; 84443; 84481; 85025; 86376

== ENCOUNTER → 2023-12-27 | Outpatient (CLI) | payer OTHER, SELFPAY ==
--- NOTE | 2023-12-27 07:21 | BI_ITS ---
MAMMOGRAPHY - BILATERAL SCREENING REASON FOR EXAM: Female, 48 years old. Routine annual screening examination. PERTINENT HISTORY: Non-contributory. TECHNIQUE: Digital bilateral breast yolanda (3D mammographic acquisition) in the CC and MLO projections. 2-D mediolateral oblique (MLO) and craniocaudad (CC) views of both breasts were obtained. CAD: Full Field Digital Mammography with Computer Added Detection was performed. COMPARISON: Comparison is made with prior study December 25, 2022 and February 27, 2022. FINDINGS: Breast Composition: There are scattered areas of fibroglandular density. There are no dominant masses or suspicious calcifications. No other significant abnormalities are identified. There has been no significant change since the prior study. BI/SCRN MAMM (CAD)W/YOLANDA BILAT IMPRESSION: Stable bilateral screening mammogram. Yearly follow-up mammogram recommended. (A) ASSESSMENT CATEGORY: BIRADS Category 1: Negative. A letter regarding these results will be sent to the patient by the facility within 30 days. Approximately 10% of breast cancers are not detected by mammography. A normal mammogram should not delay biopsy of a clinically suspicious abnormality. [id number] Electronically Signed: Davi Mcgovern MD at 8:44 EDT ,
--- OUTSIDE RECORDS SUMMARY | 2023-12-27 07:22 | XMS RPT_ITS | CCD ---
Author Organization [facility] Inform ion Partnership [facility] Care Team Providers Care Tricot Knitter Name Role Phone Kathy PASCAL, Kellie Sparks Unavailable Allergies Allergy Classification Reported Allergen(s) Allergy Type Date of Onset Reaction(s) Facility (2 sources) Cephalexin Drug Allergy 11-23-2016 [facility] (2 sources) Escitalopram Drug Allergy 11-23-2016 [facility] Results Test Name Value Interpretation Reference Range Facility MRI Lumbar Spine w/oon 09-25 MRI Lumbar Spine w/o Clinical Information: Low back pain . Study Technique: MRI lumbar spine was performed with Sagittal T1, T2 and STIR images. Axial T1 and T2 images were obtained. Comparisons: None Findings: For purposes of numbering lumbar vertebral bodies on this study the most inferior normal diameter disc space will be considered L5-S1. No transitional vertebral body segments. Plain film radiographs would be required to confirm nomenclature used in this report, particularly prior to any spine intervention. Vertebral body height: No compression deformities are detected Disc height and Disc signal: Mild disc space narrowing and disc desiccation noted in the lower lumbar spine. Alignment: Straightening of the normal lumbar lordosis is noted. No spondylolisthesis. Bone marrow signal: There are no endplate marrow changes seen. Conus medullaris: Extends to the L1 level. Paraspinal soft tissues: There is no soft tissue oedema seen in the subcutaneous tissues of the back. Other findings: No findings seen. L1-2: The intervertebral disc is intact. Facet articulations are intact. No evidence of canal stenosis is identified at this level. The neural foramina are patent. L2-3: The intervertebral disc is intact. Facet articulations are intact. No evidence of canal stenosis is identified at this level. The neural foramina are patent. L3-4: The intervertebral disc is intact. Facet articulations are intact. No evidence of canal stenosis is identified at this level. The neural foramina are patent. L4-5: 2.4 mm broad-based right foraminal protrusion noted, impinging the ventral thecal sac. There is facet arthropathy seen. No evidence of canal stenosis is identified at this level. The neural foramina show mild narrowing of the right. L5-S1: 1.2 mm broad-based posterior protrusion noted, impinging the ventral thecal sac. There is facet arthropathy seen. No evidence of canal stenosis is identified at this level. The neural foramina are patent. Impressions: 1. Posterior herniation at L5-S1 indenting the ventral thecal sac. 2. Right foraminal herniation at L4-L5 causing mild right foraminal stenosis. No canal stenosis. 3. Straightening of normal lumbar lordosis may represent muscle spasm versus strain. Follow-up as clinically indicated. Referring physician: The radiologist can be reached at [phone] if you would like to discuss the findings. [address] [facility] Pediatric Audiologist Office Visit: est annualon 0 11-23-2016 Fall risk assessment No Invalid Interpretation Code [facility] Protein mass conc Done [facility] Protein mass conc T [facility] Tobacco smoking status NHIS Never Invalid Interpretation Code [facility] Tobacco smoking status [facility] Never smoker Invalid Interpretation Code [facility] Office Visit: est annualon 0 03-01-2015 General categories Cyto stain Interp (Cervical or vaginal smear or scraping) Normal Invalid Interpretation Code [facility] Vital Signs Date Time Vital Sign Value Performing Clinician Facility 11-23-2016 13:35-0400 BMI (Body Mass Index) 28.63 kg/m2 Kellie Chavez NP [facility] 11-23-2016 13:35-0400 Body Temperature 97.6 [degF] Kellie Chavez [employer]IC [employer]ER READER [facility] 11-23-2016 13:35-0400 Body Temperature 97.59 [degF] Kellie Chavez [employer] READER [facility] 11-23-2016 13:35-0400 BP Diastolic 73 mm[Hg] Kellie Chavez ELECTRIC METER READER [facility] 11-23-2016 13:35-0400 BP Systolic 106 mm[Hg] Kellie Chavez ELECTRIC METER READER [facility] 11-23-2016 13:35-0400 Height 167.64 cm Kellie Kaplans ELECTRIC METER READER [facility] 11-23-2016 13:35-0400 Pulse (Heart Rate) 72 /min Kellie Chavez [employer]IC METER READER [facility] 11-23-2016 13:35-0400 Respiratory Rate 16 /min Kellie Chavez [employer]IC METER READER [facility] 11-23-2016 13:35-0400 Weight 80.47 kg Kellie Chavez [employer]RIC MET[employer] READER [facility] Procedures Date Procedure Procedure Detail Performing Clinician Start: 11-23-2016 Gynecologic examination Routine gynecological examination Kellie Chavez [employer] READER Start: 11-23-2016 Screening mammography Mammogram yearly screening Kellie Chavez [employer]LECT[employer]IC METER READER Start: 11-23-2016 End: 11-23-2016 Documentation of current medications Kellie Chavez [employer]ER READER Start: 11-23-2016 Gynecologic examination Routine gynecological examination Kellie Chavez [employer] READER Start: 11-23-2016 Screening mammography Mammogram yearly screening Kellie Chavez [employer]IC METER READER Plan of Treatment Date Care Activity Detail Author Start: 11-23-2016 End: 11-23-2016 Mammogram, screening Mammogram, Screening, both breasts [facility] Start: 11-23-2016 End: 11-23-2016 Appointment Appointment [facility] Start: 11-23-2016 End: 11-23-2016 Mammogram, screening Mammogram, Screening, both breasts [facility] Progress note 03-14-2021 Note Date & Type Note Facility 03-14-2021 Note HNO ID: [id number] Author: Pamela Francisco MA Service: ? Author Type: Truss Driver Helper Type: Progress Notes Filed: 03/14/2021 4:10 PM Note Text: POPULATION HEALTH NAVIGATION OUTREACH Action/ PCP OFF BOARDING OUTREACH Attempt # 1 LMOVM Attempt # 2 Sent Mychart Message. Encounter closed. Contact made with patient or family member? NO Pt identified by name and : NO Outreach Outcome/Action Unable to reach patient: Left message MyChart message sent Reason for Outreach Attribution: Provider Off-boarding Payer: Payor: MMO / Plan: MMO [employer] / Product Type: PPO / Care Gap Reviewed:: Annual Wellness visit Breast Cancer screening Flu vaccine Reminder: Reminder note to check Health Maintenance for items below Health Maintenance items due: COVID-19 VACCINE(1) Never done DEPRESSION SCREENING Never done HEPATITIS C SCREENING Never done HIV SCREENING Never done DTAP,TDAP,TD(1 - Tdap) due on 01/09/2010 MAMMOGRAM due on 02/01/2019 PAP TESTING due on 10/27/2020 HPV TESTING due on 10/27/2020 INFLUENZA(1) due on 10/30/2020 Pamela Francisco MA March 14, 2021 4:08 PM [facility] Clinical Note 03-14-2021 Note Date & Type Note Facility 03-14-2021 Note Patient Outreach (NE TNAV) MELIDA SALAS ([id number]) 1975 F Date Time Provider Department 03/14/21 PAMELA FRANCISCO During your visit today, we recorded the following information about you: Pamela Francisco MA 03/14/2021 4:10 PM Signed POPULATION HEALTH NAVIGATION OUTREACH Action/FYI PCP OFF BOARDING OUTREACH Attempt # 1 LMOVM Attempt # 2 Sent Mychart Message. Encounter closed. Contact made with patient or family member? NO Pt identified by name and : NO Outreach Outcome/Action Unable to reach patient: Left message MyChart message sent Reason for Outreach Attribution: Provider Off-boarding Payer: Payor: MMO / Plan: MMO [employer] / Product Type: PPO / Care Gap Reviewed:: Annual Wellness visit Breast Cancer screening Flu vaccine Reminder: Reminder note to check Health Maintenance for items below Health Maintenance items due: COVID-19 VACCINE(1) Never done DEPRESSION SCREENING Never done HEPATITIS C SCREENING Never done HIV SCREENING Never done DTAP,TDAP,TD(1 - Tdap) due on 01/09/2010 MAMMOGRAM due on 02/01/2019 PAP TESTING due on 10/27/2020 HPV TESTING due on 10/27/2020 INFLUENZA(1) due on 10/30/2020 Pamela Francisco MA March 14, 2021 4:08 PM Allergies As of Date: 03/14/2021 Noted Allergy Reaction KEFLEX (CEPHALEXIN) 05/11/2013 4 - Hives LEXAPRO (ESCITALOPRAM) 07/08/2005 1 - Mental Status Change Comments: ANXIETY Date Reviewed: 11/06/2017 Reviewed by: Ngoc Nicole - Fully Assessed Reason for Visit: Population Health Navigation Outreach [3910] Cmt: Offboarding - Dr aMya III Prescriptions as of 03/14/2021 - albuterol HFA (PROVENTIL HFA, VENTOLIN HFA) 90 mcg/actuation inhaler Inhale 2 Puffs as instructed every 4 hours as needed for Wheezing/Shortness of Breath. - traZODone (DESYREL) 50 mg tablet Take 50 mg by mouth daily at bedtime. - Benzonatate 200 mg capsule Take 1 capsule by mouth three times daily as needed. Problem List As Of Date 03/14/2021 Noted Resolved SUPERVIS OTHER NORMAL PREG [Z34.80] 07/09/2005 03/17/2006 Generalized hyperhidrosis [R61] 09/30/2005 11/06/2015 RASH (SKIN) [R21] 10/27/2005 03/17/2006 EXCESS FET GRTH-ANTEPART [O36.60X0] 11/02/2007 02/10/2008 Supervision of Other Normal [Z34.80] 11/29/2008 08/20/2009 Oligohydramnios, Antepartum [O41.00X0] 04/17/2009 05/01/2009 Hemorrhoids [K64.9] 01/08/2010 11/06/2015 Supervision of other normal [Z34.80] 09/04/2010 03/20/2011 TMJ (temporomandibular joint disorder) [M26.609]11/06/2015 Encounter Status:Closed by PAMELA FRANCISCO on 03/14/21 [facility] Clinical Note 09-20-2020 Note Date & Type Note Facility 09-20-2020 Note Patient Outreach (IN TMMN) MELIDA SALAS ([id number]) 1975 F Date Time Provider Department 09/20/20 RACHAEL MAYA III During your visit today, we recorded the following information about you: Allergies As of Date: 09/20/2020 Noted Allergy Reaction KEFLEX (CEPHALEXIN) 05/11/2013 4 - Hives LEXAPRO (ESCITALOPRAM) 07/08/2005 1 - Mental Status Change Comments: ANXIETY Date Reviewed: 11/06/2017 Reviewed by: gNoc Nicole - Fully Assessed Visit Diagnosis:Encounter for screening mammogram for breast cancer [Z12.31] Order(s):[facility] SCREENING [[id number]] Order #: [id number] FUTURE Prescriptions as of 09/23/2020 - albuterol HFA (PROVENTIL HFA, VENTOLIN HFA) 90 mcg/actuation inhaler Inhale 2 Puffs as instructed every 4 hours as needed for Wheezing/Shortness of Breath. - traZODone (DESYREL) 50 mg tablet Take 50 mg by mouth daily at bedtime. - Benzonatate 200 mg capsule Take 1 capsule by mouth three times daily as needed. Problem List As Of Date 09/20/2020 Noted Resolved SUPERVIS OTHER NORMAL PREG [Z34.80] 07/09/2005 03/17/2006 Generalized hyperhidrosis [R61] 09/30/2005 11/06/2015 RASH (SKIN) [R21] 10/27/2005 03/17/2006 EXCESS FET GRTH-ANTEPART [O36.60X0] 11/02/2007 02/10/2008 Supervision of Other Normal [Z34.80] 11/29/2008 08/20/2009 Oligohydramnios, Antepartum [O41.00X0] 04/17/2009 05/01/2009 Hemorrhoids [K64.9] 01/08/2010 11/06/2015 Supervision of other normal [Z34.80] 09/04/2010 03/20/2011 TMJ (temporomandibular joint disorder) [M26.609]11/06/2015 Encounter Status:Closed by EPIC, PRODUSER on 09/23/20 [facility] Summary Purpose Family History No Family History Records FoundNo Family History Records Found Advance Directives No Advanced Directives Records FoundNo Advanced Directives Records Found Additional Source Comments INFORMATION SOURCE (unrecogn ized section and content) DATE CREATED AUTHOR 04/13/2021 [facility] DATE CREATED AUTHOR 'S ORGANIZ ATION 09/30/2021 [facility] dical Specialist FOR RECORDS PERTAINING TO PATIENTS WHO ARE OR HAVE BEEN ENROLLED IN A CHEMICAL DEPENDENCY/SUBSTANCEABUSE PROGRAM, SOME INFORMATION MAY BE OMITTED. This clinical summary was aggregated from multiple sources. Caution should be exercised in using it in the provision of clinical care. This summary normalizes information from multiple sources, and as a consequence, information in this document may materially change the coding, format and clinical context of patient data. In addition, data may be omitted in some cases. CLINICAL DECISIONS SHOULD BE BASED ON THE PRIMARY CLINICAL RECORDS. [facility] [employer] provides no warranty or guarantee of the accuracy or completeness of information in this document.
== END | disposition home or self-care (01) ==
LOC: OPBI 07:20
PROVIDERS: PCP Family Medicine; Referring Provider Nurse Practitioner Women's Health; Visit Provider Nurse Practitioner Women's Health
DX: Z12.31 Encounter for screening mammogram for malignant neoplasm of breast (principal)
CPT/HCPCS: 77063; 77067

== ENCOUNTER → 2024-01-17 | Outpatient (CLI) | payer OTHER, SELFPAY ==
[2024-01-17 11:05] LABS: HIV - WCH Non-Reactive (Nonreactive); Hepatitis C Antibody Non-Reactive (Nonreactive); Syphilis Antibodies Non-reactive
[2024-01-18 21:07] LABS: Chlamydia By Nucleic Acid AMP Negative (Negative); Gonococcus By Nucleic Acid AMP Negative (Negative)
== END | disposition home or self-care (01) ==
LOC: BWCLAB 08:55
PROVIDERS: PCP Family Medicine; Referring Provider Nurse Practitioner Women's Health; Visit Provider Nurse Practitioner Women's Health
DX: N89.8 Other specified noninflammatory disorders of vagina (principal); Z20.2 Contact with and (suspected) exposure to infections with a predominantly sexual mode of transmission
CPT/HCPCS: 36415; 86695; 86696; 86703; 86780; 86803; 87070; 87205; 87491; 87591

== ENCOUNTER → 2024-12-27 | Outpatient (CLI) | payer OTHER, SELFPAY ==
--- NOTE | 2024-12-27 07:30 | BI_ITS ---
EXAM: SCRN MAMM (CAD)W/YOLANDA BILAT DATE: 12/27/2024 CLINICAL HISTORY: F, Age 49 y/o , SCREEN FOR BREAST CANCER No family history. TECHNIQUE: Procedure Code: [id number] Modality: MG Procedure: SCRN MAMM (CAD)W/YOLANDA BILAT COMPARISON: Prior exam(s) dated prior study dated December 27, 2023.. FINDINGS: TISSUE DENSITY: There are scattered areas of fibroglandular density. Bilateral Breast Mammographic Findings: No significant masses, calcifications or other abnormalities are identified. Stable benign-appearing bilateral axillary lymph nodes. No suspicious masses, areas of developing architectural distortion, or suspicious calcifications. There has been no significant interval change. BI/SCRN MAMM (CAD)W/YOLANDA BILAT IMPRESSION: Stable bilateral screening mammogram. OVERALL FINAL ASSESSMENT BI-RADS 2: BENIGN RECOMMENDATION: Routine annual follow-up in 1 Year Additional Recommendation none A letter with findings and recommendations will be mailed to the patient. Reading Location: [facility]
--- OUTSIDE RECORDS SUMMARY | 2024-12-27 07:43 | XMS RPT_ITS | CCD ---
Author Organization [facility] Inform ion [facility] Care Team Providers Care Senior Group Manager Name Role Phone Kathy CAMPAIGN MARKETING SPECIALIST, Kellie S Unavailable Dr. Femi Lopez Primary Care Provider [phone] Dr. Femi Lopez Referring Provider Kathy CAMPAIGN MARKETING SPECIALIST, CAMPAIGN MARKETING SPECIALIST-C Kellie Attending Provider JC John Attending Provider Kathy CAMPAIGN MARKETING SPECIALIST, Kellie Attending Unavailable Kathy CAMPAIGN MARKETING SPECIALIST, Kellie Referring [facility]available [facility] Kathy CAMPAIGN MARKETING SPECIALIST, Kellie Attending Unavailable [place] CAMPAIGN MARKETING SPECIALIST, Kellie Referring Unavailable Kathy CAMPAIGN MARKETING SPECIALIST, Kellie Attending Unavailable Kathy CAMPAIGN MARKETING SPECIALIST, Kellie Referring Unavailable [facility] Care Unavailable Frederick Lopez Referring Unavailable Kathy CAMPAIGN MARKETING SPECIALIST, Kellie Attending Unavailable [facility] Primary Care Unavailable Allergies Allergy Classification Reported Allergen(s) Allergy Type Date of Onset Reaction(s) Facility (2 sources) Cephalexin Drug Allergy 7 [facility] (2 sources) Escitalopram Drug Allergy 7 [facility] (6 sources) Cephalexin Drug Allergy 1 Nausea/Vom/Diar isacc [facility] (6 sources) Escitalopram Drug Allergy 1 Other [facility] (1 source) Cephalexin Drug Allergy 4 [facility] Repository (1 source) Escitalopram Drug Allergy 4 [facility] Repository Medications Current Medications Medication Drug Class(es) Dates Sig (Normalized) Sig (Original) fluconazole 150 mg oral tablet (7 sources) Azole Antifungal Start: 04-28-2022 Fluconazole Active 150 MG PO .COMPLEX 2 April 28, 2022 1:00am 150 mg PO take one po now and repeat in 3 days Start: 02-02-2019 End: 01-01-2020 Fluconazole Discontinued 150 MG PO .COMPLEX 2 February 02, 2019 1:00am January 01, 2020 9:13am 150 mg PO take one po now and repeat in 3 days Completed/Discontinued Medications Medication Drug Class(es) Dates Sig (Normalized) Sig (Original) amoxicillin 875 mg / clavulanate 125 mg oral tablet (5 sources) Penicillin-class Antibacterial Start: 01-13-2022 End: 01-23-2022 take 1 tablet by mouth every twelve hours Amoxicillin-Pot Clavulanate Discontinued 1 TABLET PO Q12H 18 12January 13, 2022 1:00am January 23, 2022 1:04am hydrocortisone 10 mg/ml / neomycin 3.5 mg/ml / polymyxin b [id number] unt/ml otic suspension (5 sources) Aminoglycoside Antibacterial, Polymyxin-class Antibacterial, Corticosteroid Start: 01-13-2022 End: 01-23-2022 Neomycin-Polymyxi n-Hc Discontinued 3 DRP OTIC Q4H 10 January 13, 2022 1:00am January 23, 2022 1:04am apply to (cotton) wick; replace wick every 24 hours traZODone hydrochloride 50 mg oral tablet (12 sources) Serotonin Reuptake Inhibitor Start: 12-20-2017 End: 01-13-2022 take 50 mg by mouth once daily Trazodone Discontinued 50 MG PO DAILY January 01, 2020 9:12am January 13, 2022 8:00am Problems Active Problems Problem Classification Problem Date Documented Da te Episodic/Chronic Other ear and sense organ disorders (5 sources) Acute otitis externa; Translations: [Unspecified acute noninfective otitis externa, left ear] 01-13-2022 Episodic Other ear and sense organ disorders (4 sources) Unspecified acute noninfective otitis externa, left ear; Translations: [Infective otitis externa, unspecified] Episodic Other screening for suspected conditions (not mental disorders or infectious disease) (2 sources) Encounter for screening mammogram for malignant neoplasm of breast; Translations: [Encounter for screening mammogram for malignant neoplasm of breast] Onset: 01-13-2024 Episodic Past or Other Problems Problem Classification Problem Date Documented Date Episodic/Chronic Immunizations and screening for infectious disease (2 sources) Contact with and (suspected) exposure to infections with a predominantly sexual mode of transmission; Translations: [Encounter for screening for infections with a predominantly sexual mode of transmission] Onset: 01-17-2024 Episodic Other female genital disorders (1 source) Other specified noninflammatory disorders of vagina; Translations: [Other specified noninflammatory disorders of vagina] Onset: 02-14-2024 Episodic Results Test Name Value Interpretation Reference Range Facility Genital Culture Comprehensiv janneth 01-20-2024 VAC Reason for Exam: vaginal irritation Normal vaginal jose alejandro isolated. No yeast, Gardnerella, Neisseria or beta-hemolytic Streptococcus isolated. Normal [facility] Comment on above: Performed By: #### M 100.3200, M1, L7000.1800 #### [facility] [address] [place], [address] Chlamydia/GC MICK aptimaon CHLAMY,NUC ACID Negative Normal Negative [facility] Comment on above: Performed By: #### M 100.3200, M100.1999, L7000.1800 #### [facility] [address] [place], [address] GC BY NUC ACID Negative Normal Negative [facility] Comment on above: Result Comment: Perf ormed at: =G - [facility] [id number] Safety And Health Manager: Anaya Momin MD, Phone: [phone] Performed By: #### M 100.3200, M1.1999, L7000.1800 #### [facility] [address] [place], [address] HSV 1 AND 2 IgGon 01-18-2024 HSV 1 IgG Normal [facility] Comment on above: Result Comment: RESU LT: REACTIVE Abnormal Please note reference interval change HSV-1 IgG testing performed using the [employer] HSV-1 IgG assay. Performed By: #### L 509.8000, L3890.6005, L3890.6300, L3400.1610 #### [facility] [address] [place], [address] HSV 2 IgG Normal [facility] Comment on above: Result Comment: RESU LT: NON-REACTIVE Please note reference interval change Current guidelines and recommendations do not recommend routine screening for HSV-2 in asymptomatic individuals, including those that are . The detection of HSV-2 IgG antibodies in a single sample indicates previous exposure to HSV-2 but does not give information as to the site of HSV infection or the timing of exposure. The predictive value of positive and negative results depends on the population's prevalence and the pretest likelihood of HSV-2. HSV-2 IgG testing performed using the [employer] HSV-2 IgG assay. Performed at: [address] [id number] Safety And Health Manager: Praveen Jacobs PhD, Phone: [phone] Performed By: #### L 509.8000, L3890.6005, L3890.6300, L3400.1610 #### [facility] [address] [place], [address] Gram Stainon 01-17-2024 GS Reason for Exam: vaginal irritation Gram Stain 1+ White Blood Cells 3+ Gram positive rods Rare Gram positive cocci No Gram negative diplococci Score = 1 Interpretation: 0-3 Normal, 4-6 Intermediate, 7-10 Positive BV Normal [facility] Comment on above: Performed By: #### M 100.3200, M100.2000, L7000.1800 #### [facility] [address] [place], [address] HIV - WCHon 01-17-2024 HIV Non-Reactive Normal Nonreactive [facility] Comment on above: Order Comment: Reaso n for Exam: std exposure Performed By: #### L 509.8000, L3890.6005, L3890.6300, L3400.1610 #### [facility] [address] [place], [address] Hepatitis C Antibodyon 01-16 Hepatitis C AB Non-Reactive Normal Nonreactive [facility] Comment on above: Order Comment: Reaso n for Exam: std exposure Result Comment: Non Reactive: < 0.8 Equivocal: >/= 0.8 to < 1.0 Reactive: >/= 1.0 The CDC requires that a reactive/equivocal HCV antibody result be sent out for confirmation. HCV Quant by PCR testing. Performed By: #### L 509.8000, L3890.6005, L3890.6300, L3400.1610 #### [facility] [address] [facility] [address] L509.8000on 01-17-2024 Syphilis Abs Non-Reactive Normal [facility] Comment on above: Order Comment: Reaso n for Exam: std exposure Performed By: #### L 509.8000, L3890.6005, L3890.6300, L3400.1610 #### [facility] [address] 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: Annual Microsystems Engineer Required: No Is patient in pain?: No Feel stressed/tense/ner vous/anxious/diffi culty sleeping: very much Allergies cephalexin (From Keflex) Allergy (Mild, Verified 01/17/24 08:12) Nausea/Vom/Diarrhe a escitalopram (From Lexapro) Allergy (Mild, Verified 01/17/24 08:12) Other Medications ???Medication ???Instructions ???Recorded ???Confirmed ???Type sertraline 150 mg capsule 75 mg PO QDAY 01/17/24 01/17/24 History Is last menstrual period known: Yes Last Menstrual Period: 01/09/24 Post menopausal: No Patient : No : No [facility] Medical History (Updated 01/17/24 @ 09:39 by Kellie Chavez NP, CAMPAIGN MARKETING SPECIALIST-C) History of migraine Family History Mother Diabetes Social History (Updated 01/17/24 @ 08:34 by Kellie Chavez NP, NAIDA-C) adopted: No household members: family housing: house number of children: 5 current occupational status: employed current occupation: [employer] current occupational exposures/hazards: No pets and animals: Yes history of recent travel: No Smoking Status: Never smoker second hand exposure: No alcohol intake: current alcohol intake frequency: holidays/special occasions only substance use type: does not use caffeine: Yes what type of physical activity do you participate in: walking seatbelt use: always do you feel safe at home: Yes additional social history: - Kana/ History 5 Elective abortions Hx Para 5 Spontaneous abortions Hx # Term Pregnancies Ectopic pregnancies Hx # Pregnancies Multiple births # of living children Past Pregnancies Del. Date Name GA/Weeks Outcome Route Bth Weight Infant Gen Labor Lgth Anesthesia Del Locatn Provider FOB Unknown 2004 Yousuf Male Unknown 2006 Sarbjit Male Unknown 2007 Willard Male Unknown 2009 Alana Female Unknown 2010 Marquis Male HPI Encounter for routine gynecological examination Details: MELIDA SALAS is a 48 year old who presents for annual exam. Tearful. Much stress. moved out and is with someone else. 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 He is seeing their 5 kids, but took them to meet new girlfriend. She is seeing a counselor. PCP put her own zoloft. 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 Still having vaginal irritation. Last PAP: 2019 History of abnormal PAP: no Last mammogram: 11/2023 History of abnormal mammogram: no Colon cancer screenin Other preventative health care screenings: John Female Reproductive History Last Menstrual Period: 01/09/24 Cycle Length: 21-35 Questions: metorrhagia: No and sexually active: No ROS Const Constitutional: Denies fatigue, weight gain or weight loss Cardio Card: Denies chest pain Resp Resp: Denies cough or dyspnea on exertion GI GI: Denies abdominal pain, bloating, change in stool character, constipation or vomiting : Reports as per HPI; Denies difficulty voiding, pelvic pain, urinary frequency, urinary incontinence, urinary urgency, vaginal discharge or vaginal pruritus Exam Const General: cooperative, healthy appearing, no acute distress and well developed Orientation: alert, oriented to person and oriented to place [facility] Head: normal to inspection Neck Neck: normal visual inspection Thyroid: thyroid normal Lymphatic: no lymphadenopathy noted Chest Breast inspection: normal inspection of the breasts and normal inspection of the axillae Breast palpation: normal palpation of the breasts, normal palpation of the axillae and no axillary lymphadenopathy Resp Effort Inspection: normal respiratory effort GI Palpation: soft, no masses and nontender Rectal Exam: deferred External Female Exam: normal external appearance and normal appearance of the urethra Urethra: normal appearance of the urethra and normal palpation Speculum Exam - Vagina: normal appearance of the vagina and normal vaginal discharge Speculum Exam - Cervix: normal appearance of the cervix Bimanual Exam- Vagina Uterus: normal bimanual exam, uterine size normal, uterine shape normal and non-tender Bimanual Exam- Adnexa, other: normal adnexae, no masses, normal and non-tender Pelvic Support: normal Neuro General: patient a (more content not included)... Normal [facility] SCRN MAMM (CAD)W/YOLANDA BILATo n 12-27-2023 SCRN MAMM (CAD)W/YOLANDA BILAT [facility] Imaging Services [address] [place], [place] [address] SCRN MAMM (CAD)W/YOLANDA BILAT MR#: [id number] Acct: [id number] Name: MELIDA SALAS Rep #: [id number] : 1975 F 48 From: Davi michael MD PCP: Dr. Frederick Lopez MD Status: REG CLI Study: SCRN MAMM (CAD)W/YOLANDA BILAT Date of Exam: 11/30 10/22 Exam# [id number] Ordering Dr: Kellie Chavez NP, NP -Keegan [id number] MAMMOGRAPHY - BILATERAL SCREENING REASON FOR EXAM: Female, 48 years old. Routine annual screening examination. PERTINENT HISTORY: Non-contributory. TECHNIQUE: Digital bilateral breast yolanda (3D mammographic acquisition) in the CC and MLO projections. 2-D mediolateral oblique (MLO) and craniocaudad (CC) views of both breasts were obtained. CAD: Full Field Digital Mammography with Computer Added Detection was performed. COMPARISON: Comparison is made with prior study 2022 and February 27, 2022. FINDINGS: Breast Composition: There are scattered areas of fibroglandular density. There are no dominant masses or suspicious calcifications. No other significant abnormalities are identified. There has been no significant change since the prior study. BI/SCRN MAMM (CAD)W/YOLANDA BILAT IMPRESSION: Stable bilateral screening mammogram. Yearly follow-up mammogram recommended. (A) ASSESSMENT CATEGORY: BIRADS Category 1: Negative. A letter regarding these results will be sent to the patient by the facility within 30 days. Approximately 10% of breast cancers are not detected by mammography. A normal mammogram should not delay biopsy of a clinically suspicious abnormality. [id number] Electronically Signed: Davi Mcgovern MD at 8:44 EDT , CC: TANNA Chavez; Dr. Frederick Lopez MD Supervisor Chassis Assembly: Signed Normal [facility] Thin prep Papanicolaou smear with manual screeningOrdered By: Dr. Lopez on 03-27-2022 Thin prep Papanicolaou smear with manual screening < 5.0 mg/L NO RANGE EST. [facility] Basophil percentageOrdered B y: Dr. Lopez on 03-12-2022 Bilirubin [Mass/Vol] 0.60 mg/dL 0.20-1.00 [facility] Comment on above: For patients on eltr ombopag therapy, use of Dimension [place] TBIL is not recommended. Chloride [Moles/Vol] 109 mmol/L 98-107 [facility] Cholesterol [Mass/Vol] 221 mg/dL <200 [facility] Comment on above: <200 mg/dL Desirable 200-240 mg/dL Borderline >240 mg/dL High Risk Glucose [Mass/Vol] 92 mg/dL 74-106 [facility] Potassium [Moles/Vol] 4.2 mmol/L 3.5-5.1 [facility] Protein [Mass/Vol] 7.1 g/dL 6.4-8.2 [facility] Sodium [Moles/Vol] 140 mmol/L 136-145 [facility] Triglyceride [Mass/Vol] 109 mg/dL <199 [facility] Comment on above: The drugs N-Acetylcy steine and Metamizole may falsely depress this assay.Serum Triglycerides Reference Interval Normal <150 mg/dL Borderline high 150 - 199 mg/dL High 200 - 499 mg/dL Very High > or = 500 mg/dL WBC (Bld) [#/Vol] 6.1 10*3/uL 4.4-11.0 [facility] Blood erythrocytes count (nu mber/volume)Ordered By: Dr. Lopez on 03-12-2022 RBC (Bld) [#/Vol] 4.97 10*6/uL 4.2-5.4 [facility] Blood hemoglobin measurement (mass/volume)Ordered By: Dr. Lopez on 03-12-2022 Hemoglobin (Bld) [Mass/Vol] 14.0 g/dL 12.0-15.0 [facility] Blood platelet mean volumeOr dered By: Dr. Lopez on 03-12-2022 Platelet mean volume (Bld) [Entitic vol] 10.5 fL 6.2-12.0 [facility] Determination of erythrocyte mean corpuscular volume (MCV)Ordered By: Dr. Lopez on 03-12-2022 MCV (RBC) [Entitic vol] 86.7 fL 81-99 [facility] Erythrocyte sedimentation ra teOrdered By: Dr. Lopez on 03-12-2022 ESR (Bld) [Velocity] 8 mm/h 0-30 [facility] Hematocrit Auto (Bld) [Volum e fraction]Ordered By: Dr. Lopez on 03-12-2022 Hematocrit (Bld) [Volume fraction] 43.1 % 37-47 [facility] Iron measurement (mass/mass) Ordered By: Dr. Lopez on 03-12-2022 Iron (Unsp spec) [Mass/Mass] 61 ug/dL 50-170 [facility] Laboratory - Chemistry and C hemistry - challengeOrdered By: Dr. Lopez on 03-12-2022 Albumin [Mass/Vol] 3.6 g/dL 2.9-4.4 [facility] ALP [Catalytic activity/Vol] 46 U/L 45-117 [facility] ALT [Catalytic activity/Vol] 21 U/L 13-56 [facility] CO2 [Moles/Vol] 23.0 mmol/L 21.0-32.0 [facility] Cobalamin (Vitamin B12) [Mass/Vol] 798 pg/mL 211-911 [facility] Globulin (S) [Mass/Vol] 3.4 g/dL 2.2-4.2 [facility] Urea nitrogen/Creatinine [Mass ratio] 15.9 mg/mg 10-20 [facility] Laboratory - Hematology and Cell countsOrdered By: Dr. Lopez on 03-12-2022 Erythrocyte distribution width (RBC) [Entitic vol] 39.9 fL 35.1-43.9 [facility] Erythrocyte distribution width (RBC) [Ratio] 12.8 % 11.6-14.6 [facility] MCH (RBC) [Entitic mass] 28.2 pg 27.0-32.0 [facility] MCHC Auto (RBC) [Mass/Vol]Or dered By: Dr. Lopez on 03-12-2022 MCHC (RBC) [Mass/Vol] 32.5 g/dL 32-36 [facility] No Panel InformationOrdered By: Dr. Lopez on 03-12-2022 Addendum Document Comment . [facility] Comment on above: The SPE pattern appe ars unremarkable. Evidence ofmonoclonal protein is not apparent.Performed at: [facility] [address] [id number] Director: Praveen Jacobs PhD, Phone: [phone] Udeeq-4-Uersfzhwt 0.3 g/dL 0.0-0.4 [facility] Vnivn-5-Ftkjpqcsb 0.8 g/dL 0.4-1.0 [facility] Anti-Nuclear Antibody Screen Negative Negative [facility] Comment on above: Performed at: [facility] [address] [id number] Director: Praveen Jacobs PhD, Phone: [phone] Estimated GFR (MDRD) Amer 71 mL/min >60 [facility] Comment on above: GFR Calc Estimated GFR (MDRD) Non-Af Amer 59 mL/min >60 [facility] Comment on above: Non- GFR Calc Gamma Globulins 1.3 g/dL 0.4-1.8 [facility] Thyroid Stimulating Hormone (TSH) 2.89 uIU/mL 0.358-3.74 [facility] Vitamin D 25-Hydroxy 35.2 ng/mL [facility] Comment on above: Vitamin D 25(OH) Sta tus Range Deficiency <20 ng/mL (50nmol/L) Insufficiency 20 - 30 ng/mL (50 - 75 nmol/L) Sufficiency 30 - 100 ng/mL (75 - 250 nmol/L) Toxicity >100 ng/mL (>250 nmol/L) Platelets bldOrdered By: Dr. Lopez on 03-12-2022 Platelets (Bld) [#/Vol] 221 10*3/uL 150-450 [facility] Protein Fractions Elph [Inte rp]Ordered By: Dr. Lopez on 03-12-2022 Protein Fractions [Interp] Comment . [facility] Comment on above: Protein electrophore sis scan will follow via computer,mail, or posting specialist delivery. Serum albumin to globulin ra mahad by protein electrophoresisOrdered By: Dr. Lopez on 03-12-2022 Albumin/Globulin Elph [Mass ratio] 1.0 0.7-1.7 [facility] Serum globulin measurement ( mass/volume)Ordered By: Dr. Lopez on 03-12-2022 Globulin (S) [Mass/Vol] 3.6 g/dL 2.2-3.9 [facility] Serum or plasma albumin ezio urement (mass/volume)Ordered By: Dr. Lopez on 03-12-2022 Albumin [Mass/Vol] 3.7 g/dL 3.2-5.0 [facility] Serum or plasma albumin/glob ulin mass ratioOrdered By: Dr. Lopez on 03-12-2022 Albumin/Globulin [Mass ratio] 1.1 {ratio} 0.9-2.4 [facility] Serum or plasma beta globuli n measurement by electrophoresis (mass/volume)Ordered By: Dr. Lopez on 03-12-2022 Beta globulin Elph [Mass/Vol] 1.2 g/dL 0.7-1.3 [facility] Serum or plasma calcium ezio urement (mass/volume)Ordered By: Dr. Lopez on 03-12-2022 Calcium [Mass/Vol] 9.0 mg/dL 8.5-10.1 [facility] Serum or plasma cholesterol in HDL measurement (mass/volume)Ordered By: Dr. Lopez on 03-12-2022 Cholesterol in HDL [Mass/Vol] 55 mg/dL >40 [facility] Comment on above: The drugs N-Acetylcy steine and Metamizole may falsely depress this assay. Reference Range HDL <40 mg/dL Low HDL Cholesterol HDL >or= 60 mg/dL High HDL Cholesterol Serum or plasma cholesterol in VLDL measurement (mass/volume)Ordered By: Dr. Lopez on 03-12-2022 Cholesterol in VLDL [Mass/Vol] 22 mg/dL 5-40 [facility] Serum or plasma creatinine m easurement (mass/volume)Ordered By: Dr. Lopez on 03-12-2022 Creatinine [Mass/Vol] 1.07 mg/dL 0.55-1.02 [facility] Comment on above: The validity of the calculated GFR & GFRAA in patients over 70 years has not been determined. Clinical correlation is essential. Serum or plasma low density lipoprotein (LDL) cholesterol measurement (mass/volume)Ordered By: Dr. Lopez on 03-12-2022 Cholesterol in LDL [Mass/Vol] 144 mg/dL 0-130 [facility] Serum or plasma urea nitroge n measurement (mass/volume)Ordered By: Dr. Lopez on 03-12-2022 Urea nitrogen [Mass/Vol] 17 mg/dL 7-18 [facility] Thin prep Papanicolaou smear with manual screeningOrdered By: Dr. Lopez on 03-12-2022 Thin prep Papanicolaou smear with manual screening 16 U/L 15-37 [facility] Thin prep Papanicolaou smear with manual screening 8 5-15 [facility] Thin prep Papanicolaou smear with manual screening See comment [facility] Comment on above: Result: Not Observed Total protein bloodOrdered B y: Dr. Lopez on 03-12-2022 Protein [Mass/Vol] 7.2 g/dL 6.0-8.5 [facility] MRI Lumbar Spine w/oon 09-25 MRI Lumbar [...] physician: The radiologist can be reached at [phone] if you would like to discuss the findings. 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 Protein [facility] conc T [facility] Tobacco smoking status UTIS Never Invalid Interpretation Code [facility] Tobacco smoking status [facility] Never smoker Invalid Interpretation Code [facility] Office Visit: est annualon 0 03-01-2015 General categories Cyto stain Interp (Cervical or vaginal smear or scraping) Normal Invalid Interpretation Code [facility] Vital Signs Date Time Vital Sign Value Performing Clinician Facility 01-13-2022 06:57-0500 Body height 170.[address] Femi Lopez Work Phone: [facility] 01-13-2022 06:57-0500 Body mass index (BMI) [Ratio] 28.6 kg/m2 Dr. Femi Lopez Work Phone: [facility] 01-13-2022 06:57-0500 Body temperature 98.5 [degF] Dr. Femi Lopez Work Phone: [facility] 01-13-2022 06:57-0500 Body weight [address] Femi Lopez Work Phone: [facility] 01-13-2022 06:57-0500 Diastolic blood pressure 70 mm[Hg] Dr. Femi Lopez Work Phone: [facility] 01-13-2022 06:57-0500 Heart rate 78 /min Dr. Femi Lopez Work Phone: [facility] 01-13-2022 06:57-0500 Respiratory rate 17 /min Dr. Femi Lopez Work Phone: [facility] 01-13-2022 06:57-0500 SaO2% (BldA) [Mass fraction] 99 % Dr. Femi Lopez Work Phone: [facility] 01-13-2022 06:57-0500 Systolic blood pressure 124 mm[Hg] Dr. Femi Lopez Work Phone: [facility] 01-07-2022 08:10-0500 Body mass index (BMI) [Ratio] 29.3 kg/m2 Dr. Femi Lopez Work Phone: [facility] 01-07-2022 08:10-0500 Body weight 82.[address] Femi Lopez Work Phone: [facility] 01-07-2022 08:10-0500 Diastolic blood pressure 84 mm[Hg] Dr. Femi Lopez Work Phone: [facility] 01-07-2022 08:10-0500 Systolic blood pressure 122 mm[Hg] Dr. Femi Lopez Work Phone: [facility] 11-23-2016 13:35-0400 BMI (Body Mass Index) 28.63 kg/m2 Kellie Chavez NP [facility] 11-23-2016 13:35-0400 Body Temperature 97.6 [degF] Kellie Chavez CAMPAIGN MARKETING SPECIALIST [facility] 11-23-2016 13:35-0400 Body Temperature 97.59 [degF] Kellie Chavez CAMPAIGN MARKETING SPECIALIST [facility] 11-23-2016 13:35-0400 BP Diastolic 73 mm[Hg] Kellie Chavez CAMPAIGN MARKETING SPECIALIST [facility] 11-23-2016 13:35-0400 BP Systolic 106 mm[Hg] Kellie Chavez CAMPAIGN MARKETING SPECIALIST [facility] 11-23-2016 13:35-0400 Height 167.64 cm Kellie Chavez NP [facility] 11-23-2016 13:35-0400 Pulse (Heart Rate) 72 /min Kellie Chavez CAMPAIGN MARKETING SPECIALIST [facility] 11-23-2016 13:35-0400 Respiratory Rate 16 /min Kellie Chavez CAMPAIGN MARKETING SPECIALIST [facility] 11-23-2016 13:35-0400 Weight 80.47 kg Kellie Chavez NP [facility] Encounters Encounter Date Encounter Type Care Provider Facility Start: 12-27-2024 ambulatory Kellie Chavez CAMPAIGN MARKETING SPECIALIST Facil ity:[facility] Start: 01-17-2024 End: 01-17-2024 ambulatory [facility] Facility:[facility] Start: 01-17-2024 End: 01-17-2024 ambulatory Kellie Chavez CAMPAIGN MARKETING SPECIALIST Facility:[facility] Start: 12-27-2023 End: 12-27-2023 [facility] Start: 2022 End: 2022 ambulatory [facility] Work Phone: Start: 2022 End: 2022 Patient encounter procedure [facility]-Outpatient Breast Imaging Work Phone: Start: 03-27-2022 End: 03-27-[address] Femi Lopez Work Phone: [facility] Work Phone: Start: 03-27-2022 End: 03-27-[address] Femi Lopez Work Phone: [facility]-Laboratory, Specimen Start: 03-20-2022 End: 03-20-[address] Femi Lopez Work Phone: [facility] Work Phone: Start: 03-20-2022 End: 03-20-[address] Femi Lopez Work Phone: [facility]-Ultrasound, [facility] Start: 03-12-2022 End: 03-12-[address] Femi Lopez Work Phone: [facility] Work Phone: Start: 03-12-2022 End: 03-12-[address] Femi Lopez Work Phone: [facility] Start: 02-27-2022 End: 02-27-[address] Femi Lopez Work Phone: [facility] Work Phone: Start: 02-27-2022 End: 02-27-[address] Femi Lopez Work Phone: [facility]-Outpatient Breast Imaging Start: 01-13-2022 End: 01-13-[address] Femi Lopez Work Phone: [facility] Start: 01-07-2022 End: 01-07-[address] Femi Lopez Work Phone: [facility] Procedures Date Procedure Procedure Detail Performing Clinician Start: 2022 Screening mammography Start: 03-20-[address] Femi del toro Work Phone: Start: 02-27-[address] Femi barker Work Phone: Start: 11-23-2016 Gynecologic examination Routine gynecological examination Kellie Chavez CAMPAIGN MARKETING SPECIALIST Start: 11-23-2016 Screening mammography Mammogram yearly screening Kellie Chavez CAMPAIGN MARKETING SPECIALIST Start: 11-23-2016 End: 11-23-2016 Documentation of current medications Kellie Chavez CAMPAIGN MARKETING SPECIALIST Start: 11-23-2016 Gynecologic examination Routine gynecological examination Kellie Chavez CAMPAIGN MARKETING SPECIALIST Start: 11-23-2016 Screening mammography Mammogram yearly screening Kellie Chavez CAMPAIGN MARKETING SPECIALIST Plan of Treatment Date Care Activity Detail Author Start: 11-23-2016 End: 11-23-2016 Mammogram, screening Mammogram, Screening, both breasts [facility] Start: 11-23-2016 End: 11-23-2016 Appointment Appointment [facility] Start: 11-23-2016 End: 11-23-2016 Mammogram, screening Mammogram, Screening, both breasts [facility] Payers Date Payer Category Payer Self-pay [id number] 2023 Unknown [id number] 2016 Unknown [employer] [id number] Unknown [facility] PACKAGE PLAN [id number] Unknown [id number] Unknown [id number] Unknown [id number] Unknown [id number] Social History Date Type Detail Facility Tobacco smoking stat us NHIS Unknown if ever smoked [facility] Work Phone: Start: 1975 Sex Assigned At Female [facility] Start: 01-13-2022 End: 01-13-2022 Tobacco smoking status NHIS Unknown if ever smoked [facility] Progress note 03-14-2021 Note Date & Type Note Facility 03-14-2021 Note HNO ID: [id number] Author: Pamela Pete MA Service: ? Author Type: [employer] Type: Progress Notes Filed: 03/14/2021 4:10 PM Note Text: POPULATION HEALTH NAVIGATION OUTREACH Action/FYI PCP OFF BOARDING OUTREACH Attempt # 1 LMOVM Attempt # 2 Sent [employer] Match[employer] Message. Encounter closed. Contact made with patient or family member? NO Pt identified by name and : NO Outreach Outcome/Action Unable to reach patient: Left message Internt message sent Reason for Outreach Attribution: Provider [...] on 10/27/2020 INFLUENZA(1) due on 10/30/2020 Pamela Pete MA March 14, 2021 4:08 PM [facility] Clinical Note 03-14-2021 Note Date & Type Note Facility 03-14-2021 Note Patient Outreach ([facility] [facility]) MELIDA SALAS ([id number]) 1975 F Date Time Provider Department 03/14/21 PAMELA PETE During your visit today, we recorded the following information about you: Pamela Pete MA 03/14/2021 4:10 PM Signed POPULATION HEALTH NAVIGATION OUTREACH Action/FYI PCP OFF BOARDING OUTREACH Attempt # 1 LMOVM Attempt # 2 Sent [employer] Message. Encounter closed. Contact made with patient [...] on 10/27/2020 INFLUENZA(1) due on 10/30/2020 Pamela Pete MA March 14, 2021 4:08 PM Allergies As of Date: 03/14/2021 Noted Allergy Reaction KEFLEX (CEPHALEXIN) 05/11/2013 4 - Hives LEXAPRO (ESCITALOPRAM) 07/08/2005 1 - Mental Status Change Comments: ANXIETY Date Reviewed: 11/06/2017 Reviewed by: Ngoc Nicole - Fully Assessed Reason for Visit: Population Health Navigation Outreach [3910] Cmt: Offboarding - Dr Howard III Prescriptions as of 03/14/2021 - albuterol [...] joint disorder) [M26.609]11/06/2015 Encounter Status:Closed by PAMELA PETE on 03/14/21 [facility] Clinical Note 09-20-2020 Note Date & Type Note Facility 09-20-2020 Note Patient Outreach (IN [facility]) MELIDA SALAS ([id number]) 1975 F Date Time Provider Department 09/20/20 RACHAEL HOWARD III During your visit today, we recorded the following information about you: Allergies As of Date: 09/20/2020 Noted Allergy Reaction KEFLEX (CEPHALEXIN) 05/11/2013 4 - Hives LEXAPRO (ESCITALOPRAM) 07/08/2005 1 - Mental Status Change Comments: ANXIETY Date Reviewed: 11/06/2017 Reviewed by: Ngoc Nicole - Fully Assessed Visit Diagnosis:Encounter for screening mammogram for breast cancer [Z12.31] Order(s):[facility] SCREENING [[id number]] Order #: [id number] FUTURE Prescriptions as of 09/23/2020 - albuterol [...] (temporomandibular joint disorder) [M26.609]11/06/2015 Encounter Status:Closed by [employer], PRODUSER on 09/23/20 [facility] Evaluation note Note Date & Type Note Facility Evaluation note No assessment information availa [facility] Work Phone: Evaluation note Note Date & Type Note Facility Evaluation note Diagnosis Onset Date Encounter for routine gyneco logical examination noneactive Acute otitis externa of left ear acute [facility] Work Phone: Summary Purpose Family History No Family History Records Found Relationship Condition Age at Onset Recorded Date/T ramona mother Diabetes mellitus Unknown Advance Directives No Advanced Directives Records FoundNo Advanced Directives Records FoundNo Advanced Directives Records Found Chief Complaint and Reason for Visit Chief Complaint 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) 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 EAR PAIN SCREENING Reason for Visit Encounter for routin e gynecological examination Acute otitis externa of left ear Chief Complaint 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) 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 EAR PAIN SCREENING DECREASED RENAL FUNCTION Reason for Visit Encounter for routin e gynecological examination Acute otitis externa of left ear Chief Complaint SCREENING Additional Source Comments INFORMATION SOURCE (unrecogn ized section and content) DATE CREATED AUTHOR 04/13/2021 [facility] DATE CREATED AUTHOR AUTHOR'S ORGANIZ ATION 09/30/2021 [facility] dical Specialist DATE CREATED AUTHOR AUTHOR'S ORGANIZ ATION 12/17/2024 [facility] Goals (unrecognized section and content) Goals may be documented in a n alternate sectionGoals may be documented in an alternate sectionGoals may be documented in an alternate sectionGoals may be documented in an alternate sectionGoals may be documented in an alternate sectionGoals may be documented in an alternate section Care Teams (unrecognized sec tion and content) Team Status: Active Member Role Status Dates Dr. Femi Lopez MD Family Provider Active Dr. Femi Lopez MD Primary Care Provider Activ e Team Status: Inactive Member Role Status Dates Dr. Femi Lopez MD Primary Care Provider, Refe rring Provider Active Kellie Chavez CAMPAIGN MARKETING SPECIALIST, CAMPAIGN MARKETING SPECIALIST-C Attending Provider Active Team Status: Inactive Member Role Status Dates Dr. Femi Lopez MD Primary Care Provider, Refe rring Provider Active Jaskaran GREENE, [place] Attending Provider Active Team Status: Inactive Member Role Status Dates Dr. Femi Lopez MD Primary Care Provider Activ e Kellie Chavez CAMPAIGN MARKETING SPECIALIST, CAMPAIGN MARKETING SPECIALIST-C Attending Provider, Referring Provider Active Team Status: Inactive Member Role Status Dates Dr. Femi Lopez MD Primary Care Provider, Attending Provider, Referring Provider Active Team Status: Active Member Role Status Dates Dr. Femi Lopez MD Primary Care Provider, Attending Provider, Referring Provider Active FOR RECORDS PERTAINING TO PATIENTS WHO ARE [...] BE BASED ON THE PRIMARY CLINICAL RECORDS. [employer] provides no warranty or guarantee of the accuracy or completeness of information in this document.
== END | disposition home or self-care (01) ==
LOC: OPBI 07:34
PROVIDERS: PCP Family Medicine; Referring Provider Nurse Practitioner Women's Health; Visit Provider Nurse Practitioner Women's Health
DX: Z12.31 Encounter for screening mammogram for malignant neoplasm of breast (principal)
CPT/HCPCS: 77063; 77067

== ENCOUNTER → 2025-01-16 | Outpatient (CLI) | payer OTHER, SELFPAY ==
--- OUTSIDE RECORDS SUMMARY | 2025-01-16 07:51 | XMS RPT_ITS | CCD ---
Author Organization [facility] Inform ion [facility] Care Team Providers Care Filler And Trimmer Name Role Phone Kathy TELEGRAPH SERVICE CLERKKellie S Unavailable [phone] Femi Lopez Primary Care Provider [phone] Dr. Femi Lopez Referring Provider Kathy TELEGRAPH SERVICE CLERK, TELEGRAPH SERVICE CLERKStoneC Kellie Attending Provider JC John Attending Provider Frederick Lopez Primary Care Unavailable Frederick Lopez Referring Unavailable Kathy TELEGRAPH SERVICE CLERK, Kellie Attending Unavailable Frederick Lopez Primary Care Unavailable Kathy TELEGRAPH SERVICE CLERK, Kellie Attending Unavailable Kathy TELEGRAPH SERVICE CLERK, Kellie Referring Unavailable Frederick Lopez Primary Care Unavailable Kathy TELEGRAPH SERVICE CLERK, Kellie Attending Unavailable Kathy TELEGRAPH SERVICE CLERK, Kellie Referring Unavailable Allergies Allergy Classification Reported Allergen(s) Allergy Type Date of Onset Reaction(s) Facility (2 sources) Cephalexin Drug Allergy 7 [facility] (2 sources) Escitalopram Drug Allergy 7 [facility] (6 sources) Cephalexin Drug Allergy 1 Nausea/Vom/Diar isacc [facility] (6 sources) Escitalopram Drug Allergy 1 Other [facility] (1 source) Cephalexin Drug Allergy 4 [facility] Repository (1 source) Escitalopram Drug Allergy 4 [facility] Repository Medications Current Medications Medication Drug [...] Amoxicillin-Pot Clavulanate Discontinued 1 TABLET PO Q12H 20 January 13, 2022 1:00am January 23, 2022 1:04am hydrocortisone 10 mg/ml / neomycin 3.5 mg/ml / polymyxin b 33240 unt/ml otic suspension (5 sources) Aminoglycoside Antibacterial, [...] conditions (not mental disorders or infectious disease) (1 source) Encounter for screening mammogram for malignant neoplasm of breast; Translations: [Encounter for screening mammogram for malignant neoplasm of breast] Onset: 01-03-2025 Episodic Past or Other Problems Problem Classification [...] Test Name Value Interpretation Reference Range Facility SCRN MAMM (CAD)W/YOLANDA BILATo n 12-27-2024 SCRN MAMM (CAD)W/YOLANDA BILAT [facility] Imaging Services [address] [place], [place] [address] SCRN MAMM (CAD)W/YOLANDA BILAT MR#: [id number] Acct: [id number] Name: MELIDA SALAS Rep #: [id number] : 1975 F 49 From: Davi michael MD PCP: Dr. Frederick Lopez MD Status: [facility] Study: SCRN MAMM (CAD)W/YOLANDA BILAT Date of Exam: 11/30 11/23 Exam# [id number] Ordering Dr: Kellie Chavez TELEGRAPH SERVICE CLERK TELEGRAPH SERVICE CLERK -C EXAM: SCRN MAMM (CAD)W/YOLANDA BILAT DATE: 12/27/2024 CLINICAL HISTORY: F, Age 49 y/o , SCREEN FOR BREAST CANCER No family history. TECHNIQUE: Procedure Code: [id number] Modality: MG Procedure: SCRN MAMM (CAD)W/YOLANDA BILAT COMPARISON: Prior exam(s) dated prior study dated December 27, 2023.. FINDINGS: TISSUE DENSITY: There are scattered areas of fibroglandular density. Bilateral Breast Mammographic Findings: No significant masses, calcifications or other abnormalities are identified. Stable benign- appearing bilateral axillary lymph nodes. No suspicious masses, areas of developing architectural distortion, or suspicious calcifications. There has been no significant interval change. BI/SCRN MAMM (CAD)W/YOLANDA BILAT IMPRESSION: Stable bilateral screening mammogram. OVERALL FINAL ASSESSMENT BI-RADS 2: BENIGN RECOMMENDATION: Routine annual follow-up in 1 Year Additional Recommendation none A letter with findings and recommendations will be mailed to the patient. Reading Location: [facility] CC: TANNA Chavez; Dr. Frederick Lopez MD Flight Crew Time Clerk: Signed Normal [facility] Genital Culture Comprehensiv janneth 01-20-2024 VAC Reason for Exam: vaginal irritation Normal vaginal jose alejandro isolated. No yeast, Gardnerella, Neisseria or beta-hemolytic Streptococcus isolated. Normal [facility] Comment on above: Performed By: #### M 100.3200, M100.1999, L7000.1800 #### [facility] [address] [place], [address] Chlamydia/GC MICK aptimaon CHLAMY,NUC ACID Negative Normal Negative [facility] Comment on above: Performed By: #### M 100.3200, M100.1999, L7000.1800 #### [facility] [address] [place], [address] GC BY NUC ACID Negative Normal Negative [facility] Comment on above: Result Comment: Perf ormed at: =G - [facility] [address] [id number] Medical Superintendent: Anaya Momin MD, Phone: [phone] Performed By: #### M 100.3200, M100.1999, L7000.1800 #### [facility] [address] [place], [address] HSV 1 AND 2 IgGon 01-18-2024 HSV 1 IgG Normal [facility] Comment on above: Result Comment: RESU LT: REACTIVE Abnormal Please note reference interval change HSV-1 IgG testing performed using the [employer] HSV-1 IgG assay. Performed By: #### L 509.8000, L3890.6005, L3890.6300, L3400.1610 #### [facility] [address] [place], [address] HSV 2 IgG Normal [facility] Comment on above: Result Comment: RESU [...] [employer] HSV-2 IgG assay. Performed at: [address] [id number] Medical Superintendent: Praveen Jacobs PhD, Phone: [phone] Performed By: #### L 509.8000, L3890.6005, L3890.6300, L3400.1610 #### [facility] [address] [facility] [place], [place], [id number] Gram Stainon 01-17-2024 GS Reason for Exam: vaginal irritation Gram Stain 1+ White Blood Cells 3+ Gram positive rods Rare Gram positive cocci No Gram negative diplococci Score = 1 Interpretation: 0-3 Normal, 4-6 Intermediate, 7-10 Positive BV Normal [facility] Comment on above: Performed By: #### M 100.3200, M100.2000, L7000.1800 #### [facility] [address] [facility] [place], [place], [id number] HIV - WCHon 01-17-2024 HIV Non-Reactive Normal Nonreactive [facility] Comment on above: Order Comment: Reaso n for Exam: std exposure Performed By: #### L 509.8000, L3890.6005, L3890.6300, L3400.1610 #### [facility] [address] [facility] [place], [place], [id number] Hepatitis C Antibodyon 01-16 Hepatitis C AB Non-Reactive Normal Nonreactive [facility] Comment on above: Order Comment: Reaso n for Exam: std exposure Result Comment: Non Reactive: < 0.8 Equivocal: >/= 0.8 to < 1.0 Reactive: >/= 1.0 The CDC requires that a reactive/equivocal HCV antibody result be sent out for confirmation. HCV Quant by PCR testing. Performed By: #### L 509.8000, L3890.6005, L3890.6300, L3400.1610 #### [facility] [address] [place], [address] L509.8000on 01-17-2024 Syphilis Abs Non-Reactive Normal [facility] Comment on above: Order Comment: Reaso n for Exam: std exposure Performed By: #### L 509.8000, L3890.6005, L3890.6300, L3400.1610 #### [facility] [address] 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: Annual Event Lighting Specialist Required: No Is patient in pain?: No [...] menopausal: No Patient : No : No PFSH Medical History (Updated 01/17/24 @ 09:39 by Kellie Chavez NP, TANNA) History of migraine Family History Mother Diabetes Social History (Updated 01/17/24 @ 08:34 by Kellie Chavez NP, NP-C) adopted: No household members: family housing: house [...] Date Name GA/Weeks Outcome Route Bth Weight Gen Labor Lgth Anesthesia Del Locatn Provider FOB Unknown 2004 Yousuf Male Unknown 2006 Sarbjit Male Unknown 2007 Willard Male Unknown 2009 Alana Female Unknown 2010 Marquis Male HPI Encounter for routine gynecological examination Details: MELIDA SALAS is a 48 year old who presents for annual exam. Tearful. Much stress. moved out and is with someone else. 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 He is seeing their [...] oriented to person and oriented to place [facility] Head: normal to inspection Neck Neck: [...] patient a (more content not included)... Normal [facility] Thin prep Papanicolaou smear with manual screeningOrdered By: Dr. Lopez on 03-27-2022 Thin prep Papanicolaou smear with manual screening < 5.0 mg/L NO RANGE EST. [facility] Basophil percentageOrdered B y: Dr. Lopez on 03-12-2022 Bilirubin [Mass/Vol] 0.60 mg/dL 0.20-1.00 [facility] Comment on above: For patients on eltr ombopag therapy, use of Dimension [place] TBIL is not recommended. Chloride [Moles/Vol] 109 mmol/L 98-107 [facility] Cholesterol [Mass/Vol] 221 mg/dL <200 [facility] Comment on above: <200 mg/dL Desirable 200-240 mg/dL Borderline >240 mg/dL High Risk Glucose [Mass/Vol] 92 mg/dL 74-106 [facility] Potassium [Moles/Vol] 4.2 mmol/L 3.5-5.1 [facility] Protein [Mass/Vol] 7.1 g/dL 6.4-8.2 [facility] Sodium [Moles/Vol] 140 mmol/L 136-145 [facility] Triglyceride [Mass/Vol] 109 mg/dL <199 [facility] Comment on above: The drugs N-Acetylcy steine and Metamizole may falsely depress this assay.Serum Triglycerides Reference Interval Normal <150 mg/dL Borderline high 150 - 199 mg/dL High 200 - 499 mg/dL Very High > or = 500 mg/dL WBC (Bld) [#/Vol] 6.1 10*3/uL 4.4-11.0 [facility] Blood erythrocytes count (nu mber/volume)Ordered By: Dr. Lopez on 03-12-2022 RBC (Bld) [#/Vol] 4.97 10*6/uL 4.2-5.4 [facility] Blood hemoglobin measurement (mass/volume)Ordered By: Dr. Lopez on 03-12-2022 Hemoglobin (Bld) [Mass/Vol] 14.0 g/dL 12.0-15.0 [facility] Blood platelet mean volumeOr dered By: Dr. Lopez on 03-12-2022 Platelet mean volume (Bld) [Entitic vol] 10.5 fL 6.2-12.0 [facility] Determination of erythrocyte mean corpuscular volume (MCV)Ordered By: Dr. Lopez on 03-12-2022 MCV (RBC) [Entitic vol] 86.7 fL 81-99 [facility] Erythrocyte sedimentation ra teOrdered By: Dr. Lopez on 03-12-2022 ESR (Bld) [Velocity] 8 mm/h 0-30 [facility] Hematocrit Auto (Bld) [Volum e fraction]Ordered By: Dr. Lopez on 03-12-2022 Hematocrit (Bld) [Volume fraction] 43.1 % 37-47 [facility] Iron measurement (mass/mass) Ordered By: Dr. Lopez on 03-12-2022 Iron (Unsp spec) [Mass/Mass] 61 ug/dL 50-170 [facility] - Chemistry and C hemistry - challengeOrdered By: Dr. Lopez on 03-12-2022 Albumin [Mass/Vol] 3.6 g/dL 2.9-4.4 [facility] ALP [Catalytic activity/Vol] 46 U/L 45-117 [facility] ALT [Catalytic activity/Vol] 21 U/L 13-56 [facility] CO2 [Moles/Vol] 23.0 mmol/L 21.0-32.0 [facility] Cobalamin (Vitamin B12) [Mass/Vol] 798 pg/mL 211-911 [facility] Globulin (S) [Mass/Vol] 3.4 g/dL 2.2-4.2 [facility] Urea nitrogen/Creatinine [Mass ratio] 15.9 mg/mg 10-20 [facility] - Hematology and Cell countsOrdered By: Dr. Lopez on 03-12-2022 Erythrocyte distribution width (RBC) [Entitic vol] 39.9 fL 35.1-43.9 [facility] Erythrocyte distribution width (RBC) [Ratio] 12.8 % 11.6-14.6 [facility] MCH (RBC) [Entitic mass] 28.2 pg 27.0-32.0 [facility] MCHC Auto (RBC) [Mass/Vol]Or dered By: Dr. Lopez on 03-12-2022 MCHC (RBC) [Mass/Vol] 32.5 g/dL 32-36 [facility] No Panel InformationOrdered By: Dr. Lopez on 03-12-2022 Addendum Document Comment . [facility] Comment on above: The SPE pattern appe ars unremarkable. Evidence ofmonoclonal protein is not apparent.Performed at: [facility] [address] [id number] Director: Praveen Jaocbs PhD, Phone: [phone] Hxzkd-1-Lowvxtofj 0.3 g/dL 0.0-0.4 [facility] Oxwqm-8-Qkipexqzt 0.8 g/dL 0.4-1.0 [facility] Anti-Nuclear Antibody Screen Negative Negative [facility] Comment on above: Performed at: [facility] [address] [id number] Director: Praveen Jacobs PhD, Phone: [phone] Estimated GFR (MDRD) Amer 71 mL/min >60 [facility] Comment on above: GFR Calc Estimated GFR (MDRD) Non-Af Amer 59 mL/min >60 [facility] Comment on above: Non- GFR Calc Gamma Globulins 1.3 g/dL 0.4-1.8 [facility] Thyroid Stimulating Hormone (TSH) 2.89 uIU/mL 0.358-3.74 [facility] Vitamin D 25-Hydroxy 35.2 ng/mL [facility] Comment on above: Vitamin D 25(OH) Sta tus Range Deficiency <20 ng/mL (50nmol/L) Insufficiency 20 - 30 ng/mL (50 - 75 nmol/L) Sufficiency 30 - 100 ng/mL (75 - 250 nmol/L) Toxicity >100 ng/mL (>250 nmol/L) Platelets bldOrdered By: Dr. Lopez on 03-12-2022 Platelets (Bld) [#/Vol] 221 10*3/uL 150-450 [facility] Protein Fractions Elph [Inte rp]Ordered By: Dr. Lopez on 03-12-2022 Protein Fractions [Interp] Comment . [facility] Comment on above: Protein electrophore sis scan will follow via computer,mail, or public information specialist delivery. Serum albumin to globulin ra mahad by protein electrophoresisOrdered By: Dr. Lopez on 03-12-2022 Albumin/Globulin Elph [Mass ratio] 1.0 0.7-1.7 [facility] Serum globulin measurement ( mass/volume)Ordered By: Dr. Lopez on 03-12-2022 Globulin (S) [Mass/Vol] 3.6 g/dL 2.2-3.9 [facility] Serum or plasma albumin ezio urement (mass/volume)Ordered By: Dr. Lopez on 03-12-2022 Albumin [Mass/Vol] 3.7 g/dL 3.2-5.0 [facility] Serum or plasma albumin/glob ulin mass ratioOrdered By: Dr. Lopez on 03-12-2022 Albumin/Globulin [Mass ratio] 1.1 {ratio} 0.9-2.4 [facility] Serum or plasma beta globuli n measurement by electrophoresis (mass/volume)Ordered By: Dr. Lopez on 03-12-2022 Beta globulin Elph [Mass/Vol] 1.2 g/dL 0.7-1.3 [facility] Serum or plasma calcium ezio urement (mass/volume)Ordered By: Dr. Lopez on 03-12-2022 Calcium [Mass/Vol] 9.0 mg/dL 8.5-10.1 [facility] Serum or plasma cholesterol in HDL measurement (mass/volume)Ordered By: Dr. Lopez on 03-12-2022 Cholesterol in HDL [Mass/Vol] 55 mg/dL >40 [facility] Comment on above: The drugs N-Acetylcy steine and Metamizole may falsely depress this assay. Reference Range HDL <40 mg/dL Low HDL Cholesterol HDL >or= 60 mg/dL High HDL Cholesterol Serum or plasma cholesterol in VLDL measurement (mass/volume)Ordered By: Dr. Lopez on 03-12-2022 Cholesterol in VLDL [Mass/Vol] 22 mg/dL 5-40 [facility] Serum or plasma creatinine m easurement (mass/volume)Ordered By: Dr. Lopez on 03-12-2022 Creatinine [Mass/Vol] 1.07 mg/dL 0.55-1.02 [facility] Comment on above: The validity of the calculated GFR & GFRAA in patients over 70 years has not been determined. Clinical correlation is essential. Serum or plasma low density lipoprotein (LDL) cholesterol measurement (mass/volume)Ordered By: Dr. Lopez on 03-12-2022 Cholesterol in LDL [Mass/Vol] 144 mg/dL 0-130 [facility] Serum or plasma urea nitroge n measurement (mass/volume)Ordered By: Dr. Lopez on 03-12-2022 Urea nitrogen [Mass/Vol] 17 mg/dL 7-18 [facility] Thin prep Papanicolaou smear with manual screeningOrdered By: Dr. Lopez on 03-12-2022 Thin prep Papanicolaou smear with manual screening 16 U/L 15-37 [facility] Thin prep Papanicolaou smear with manual screening 8 5-15 [facility] Thin prep Papanicolaou smear with manual screening See comment [facility] Comment on above: Result: Not Observed Total protein bloodOrdered B y: Dr. Lopez on 03-12-2022 Protein [Mass/Vol] 7.2 g/dL 6.0-8.5 [facility] MRI Lumbar Spine w/oon 09-25 MRI Lumbar [...] physician: The radiologist can be reached at [phone] if you would like to discuss the findings. 1057 Normal [facility] New Accounts Clerk Office Visit: est annualon 0 11-23-2016 Fall risk assessment No Invalid Interpretation Code [facility] mass conc T [facility] Tobacco smoking status NYIS Never Invalid Interpretation Code [facility] Tobacco smoking status [facility] Never smoker Invalid Interpretation Code [facility] Office Visit: est annualon 0 03-01-2015 General categories Cyto stain Interp (Cervical or vaginal smear or scraping) Normal Invalid Interpretation Code [facility] Vital Signs Date Time Vital Sign Value Performing Clinician Facility 01-13-2022 06:57-0500 Body height 170.[address] Femi Lopez Work Phone: [facility] 01-13-2022 06:57-0500 Body mass index (BMI) [Ratio] 28.6 kg/m2 Dr. Femi Lopez Work Phone: [facility] 01-13-2022 06:57-0500 Body temperature 98.5 [degF] Dr. Femi Lopez Work Phone: [facility] 01-13-2022 06:57-0500 Body weight [address] Femi Lopez Work Phone: [facility] 01-13-2022 06:57-0500 Diastolic blood pressure 70 mm[Hg] Dr. Femi Lopez Work Phone: [facility] 01-13-2022 06:57-0500 Heart rate 78 /min Dr. Femi Lopez Work Phone: [facility] 01-13-2022 06:57-0500 Respiratory rate 17 /min Dr. eFmi Lopez Work Phone: [facility] 01-13-2022 06:57-0500 SaO2% (BldA) [Mass fraction] 99 % Dr. Femi Lopez Work Phone: [facility] 01-13-2022 06:57-0500 Systolic blood pressure 124 mm[Hg] Dr. Femi Lopez Work Phone: [facility] 01-07-2022 08:10-0500 Body mass index (BMI) [Ratio] 29.3 kg/m2 Dr. Femi Lopez Work Phone: [facility] 01-07-2022 08:10-0500 Body weight 82.[address] Femi Lopez Work Phone: [facility] 01-07-2022 08:10-0500 Diastolic blood pressure 84 mm[Hg] Dr. Femi Lopez Work Phone: [facility] 01-07-2022 08:10-0500 Systolic blood pressure 122 mm[Hg] Dr. Femi Lopez Work Phone: [facility] 11-23-2016 13:35-0400 BMI (Body Mass Index) 28.63 kg/m2 Kellie Chavez NP [facility] 11-23-2016 13:35-0400 Body Temperature 97.6 [degF] Kellie Chavez TELEGRAPH SERVICE CLERK [facility] 11-23-2016 13:35-0400 Body Temperature 97.59 [degF] Kellie Chavez TELEGRAPH SERVICE CLERK [facility] 11-23-2016 13:35-0400 BP Diastolic 73 mm[Hg] Kellie Chavez TELEGRAPH SERVICE CLERK [facility] 11-23-2016 13:35-0400 BP Systolic 106 mm[Hg] Kellie Chavez TELEGRAPH SERVICE CLERK [facility] 11-23-2016 13:35-0400 Height 167.64 cm Kellie Chavez NP [facility] 11-23-2016 13:35-0400 Pulse (Heart Rate) 72 /min Kellie Chavez NP [facility] 11-23-2016 13:35-0400 Respiratory Rate 16 /min Kellie Chavez NP [facility] 11-23-2016 13:35-0400 Weight 80.47 kg Kellie Chavez NP [facility] Encounters Encounter Date Encounter Type Care Provider Facility Start: 12-27-2024 End: 12-27-2024 ambulatory Frederick Lopez Facility:[facility] Start: 01-17-2024 End: 01-17-2024 ambulatory Frederick Lopez Facility:[facility] Start: 01-17-2024 End: 01-17-2024 [facility] Facility:[facility] Start: 2022 End: 2022 ambulatory [facility] Work Phone: Start: 2022 End: 2022 Patient encounter procedure [facility] Work Phone: Start: 03-27-2022 End: 03-27-[address] Femi Lopez Work Phone: [facility] Work Phone: Start: 03-27-2022 End: 03-27-[address] Femi Lopez Work Phone: [facility]Laboratory, Specimen Start: 03-20-2022 End: 03-20-[address] Femi Lopez Work Phone: [facility] Work Phone: Start: 03-20-2022 End: 03-20-[address] Femi Lopez Work Phone: [facility] Start: 03-12-2022 End: 03-12-[address] Femi Lopez Work Phone: [facility] Work Phone: Start: 03-12-2022 End: 03-12-[address] Femi Lopez Work Phone: [facility] Start: 02-27-2022 End: 02-27-[address] Femi Lopez Work Phone: [facility] Work Phone: Start: 02-27-2022 End: 02-27-[address] Femi Lopez Work Phone: [facility] Start: 01-13-2022 End: 01-13-[address] Femi Lopez Work Phone: [facility] Start: 01-07-2022 End: 01-07-[address] Femi Lopez Work Phone: [facility] Procedures Date Procedure Procedure Detail Performing Clinician Start: 2022 Screening mammography Start: 03-20-[address] Femi del toro Work Phone: Start: 02-27-[address] Femi barker Work Phone: Start: 11-23-2016 Gynecologic examination Routine gynecological examination Kellie Bluewater TELEGRAPH SERVICE CLERK Start: 11-23-2016 Screening mammography Mammogram yearly screening Kellie Bluewater TELEGRAPH SERVICE CLERK Start: 11-23-2016 End: 11-23-2016 Documentation of current medications Kellie Kathy TELEGRAPH SERVICE CLERK Start: 11-23-2016 Gynecologic examination Routine gynecological examination Kellie Kathy TELEGRAPH SERVICE CLERK Start: 11-23-2016 Screening mammography Mammogram yearly screening Kellie Bluewater TELEGRAPH SERVICE CLERK Plan of Treatment Date Care Activity Detail Author Start: 11-23-2016 End: 11-23-2016 Mammogram, screening Mammogram, Screening, both breasts [facility] Start: 11-23-2016 End: 11-23-2016 Appointment Appointment [facility] Start: 11-23-2016 End: 11-23-2016 Mammogram, screening Mammogram, Screening, both breasts [facility] Payers Date Payer Category Payer Self-pay [id number] 2023 Unknown [id number] 2016 Unknown [employer] [id number] Unknown [facility] P[facility] [id number] Unknown [id number] Unknown [id number] Unknown [id number] Social History Date Type Detail Facility Tobacco smoking stat us NHIS Unknown if ever smoked [facility] Work Phone: Start: 1975 Sex Assigned At Female [facility] Start: 01-13-2022 End: 01-13-2022 Tobacco smoking status NHIS Unknown if ever smoked [facility] Progress note 03-14-2021 Note Date & Type Note Facility 03-14-2021 Note HNO ID: [id number] Author: Pamela Pete MA Service: ? Author Type: Court Messenger Type: Progress Notes Filed: 03/14/2021 4:10 PM Note Text: POPULATION HEALTH NAVIGATION OUTREACH Action/FYI PCP OFF BOARDING OUTREACH Attempt # 1 LMOVM Attempt # 2 Sent FREEjit Message. Encounter closed. Contact made with patient or family member? NO Pt identified by name and : NO Outreach Outcome/Action Unable to reach patient: Left message [employer] message sent Reason for Outreach Attribution: Provider [...] Pete MA March 14, 2021 4:08 PM [facility] Clinical Note 03-14-2021 Note Date & Type Note Facility 03-14-2021 Note Patient Outreach (NE TNAV) MELIDA SALAS ([id number]) 1975 F Date Time Provider Department 03/14/21 PAMELA PETE During your visit today, we recorded the following information about you: Pamela Pete MA 03/14/2021 4:10 PM Signed [facility] OUTREACH Action/ PCP OFF BOARDING OUTREACH Attempt # 1 LMOVM Attempt # 2 Sent FREEjit Message. Encounter closed. Contact made with patient or family member? NO Pt identified by name and : NO Outreach Outcome/Action Unable to reach patient: Left message [employer] message sent Reason for Outreach Attribution: Provider [...] Navigation Outreach [3910] Cmt: Offboarding - Dr Lee BRAVO Prescriptions as of 03/14/2021 - albuterol HFA [...] Encounter Status:Closed by PAMELA PETE on 03/14/21 [facility] Clinical Note 09-20-2020 Note Date & Type Note Facility 09-20-2020 Note Patient Outreach (IN TMMN) MELIDA SALAS ([id number]) 1975 F Date Time Provider Department 09/20/20 [...] for screening mammogram for breast cancer [Z12.31] Order(s):[facility] SCREENING [[id number]] Order #: [id number] FUTURE Prescriptions as of 09/23/2020 - albuterol [...] (temporomandibular joint disorder) [M26.609]11/06/2015 Encounter Status:Closed by CHANCE LARAUSER on 09/23/20 [facility] Evaluation note Note Date & Type Note Facility Evaluation note No assessment information availa ble [facility] Work Phone: Evaluation note Note Date & Type Note Facility Evaluation note Diagnosis Onset Date Encounter for routine gyneco logical examination noneactive Acute otitis externa of left ear acute [facility] Work Phone: Summary Purpose Family History No Family History Records Found Relationship Condition Age at Onset Recorded Date/T ramona mother Diabetes mellitus Unknown Advance Directives No Advanced Directives Records FoundNo Advanced Directives Records FoundNo Advanced Directives Records Found Chief Complaint and Reason for Visit Chief Complaint 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) BILATERAL EAR PAIN SCREENING Reason for Visit Encounter for routin e gynecological examination Acute otitis externa of left ear Chief Complaint 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) BILATERAL EAR PAIN SCREENING DECREASED RENAL FUNCTION Reason for Visit Encounter for routin e gynecological examination Acute otitis externa of left ear Chief Complaint SCREENING Additional Source Comments INFORMATION SOURCE (unrecogn ized section and content) DATE CREATED AUTHOR 04/13/2021 [facility] DATE CREATED AUTHOR AUTHOR'S ORGANIZ ATION 09/30/2021 [facility] d[facility] Specialist DATE CREATED AUTHOR AUTHOR'S ORGANIZ ATION 01/05/2025 [facility] Goals (unrecognized section and content) Goals may [...] Provider, Refe rring Provider Active Kellie Chavez TELEGRAPH SERVICE CLERK, TELEGRAPH SERVICE CLERK-C Attending Provider Active Team Status: Inactive Member Role Status Dates Dr. Femi Lopez MD Primary Care Provider, Refe rring Provider Active Jaskaran GREENE, PA Attending Provider Active Team Status: Inactive Member Role Status Dates Dr. Femi Lopez MD Primary Care Provider Activ deep Chavez TELEGRAPH SERVICE CLERK, TELEGRAPH SERVICE CLERK-C Attending Provider, Referring Provider Active Team Status: [...] BE BASED ON THE PRIMARY CLINICAL RECORDS. [employer] provides no warranty or guarantee of the accuracy or completeness of information in this document.
[2025-01-16 10:10] LABS: Hematocrit 38.0 % (37-47); Hemoglobin 12.7 g/dL (12.0-15.0); Mean Corp Hgb Conc 33.4 g/dL (32-36); Mean Corpuscular Volume 89.0 fL (81-99); Mean Platelet Vol. 9.3 fl (6.2-12.0); Platelet Count 286 K/mm3 (150-450); RBC Distribution Width CV 12.5 % (11.6-14.6); RBC Distribution Width SD 40.1 fl (35.1-43.9); Red Blood Count 4.27 M/mm3 (4.2-5.4); White Blood Count 6.6 K/mm3 (4.4-11.0)
[2025-01-16 10:48] LABS: Anion Gap 11 (5-15); BUN 16 mg/dL (4-19); BUN/Creat Ratio 16.2 RATIO (10-20); Calcium,Total 8.4 mg/dL (7.6-11.0); Carbon Dioxide 22.6 mmol/L (21.0-32.0); Chloride 107 mmol/L (98-108); Glucose 85 mg/dL (70-99); Iron 67 ug/dL (50-170); Potassium 4.2 mmol/L (3.3-5.1)
[2025-01-16 10:56] LABS: Ferritin 39 ng/mL (22-378); Vitamin D,25 Hydroxy 33.2 ng/mL (30-100)
== END | disposition home or self-care (01) ==
LOC: MTLAB 07:30
PROVIDERS: PCP Family Medicine; Referring Provider Family Medicine; Visit Provider Family Medicine
DX: E03.8 Other specified hypothyroidism (principal); D64.9 Anemia, unspecified
CPT/HCPCS: 36415; 80048; 82306; 82728; 83540; 84439; 84443; 85027

== ENCOUNTER → 2025-01-24 | Outpatient (CLI) | payer OTHER, SELFPAY ==
--- OUTSIDE RECORDS SUMMARY | 2025-01-24 16:45 | XMS RPT_ITS | CCD ---
Author Organization [facility] Inform ion [facility] Care Team Providers Care Lock And Dam Repairer Name Role Phone Kathy CHIP UNLOADERKellie S Unavailable Dr. Femi Lopez Primary Care Provider [phone] Dr. Femi Lopez Referring Provider Kathy CHIP UNLOADER, CHIP UNLOADERStoneC Kellie Attending Provider [phone] JC John Attending Provider [phone] Frederick Lopez Primary Care Unavailable Frederick Lopez Referring Unavailable Kathy CHIP UNLOADER, Kellie Attending Unavailable Frederick Lopez Primary Care Unavailable Kathy CHIP UNLOADER, Kellie Attending Unavailable Kathy CHIP UNLOADER, Kellie Referring Unavailable Frederick Lopez Primary Care Unavailable Kathy CHIP UNLOADER, Kellie Attending Unavailable Kathy CHIP UNLOADER, Kellie Referring Unavailable Allergies Allergy Classification Reported Allergen(s) Allergy Type Date of Onset Reaction(s) Facility (2 sources) Cephalexin Drug Allergy 7 [facility] (2 sources) Escitalopram Drug Allergy 7 [facility] (6 sources) Cephalexin Drug Allergy 1 Nausea/Vom/Diar isacc [facility] (6 sources) Escitalopram Drug Allergy 1 Other [facility] (1 source) Cephalexin Drug Allergy 4 [facility] Repository (1 source) Escitalopram Drug Allergy 4 [facility] Repository Medications Current Medications Medication Drug [...] / neomycin 3.5 mg/ml / polymyxin b 04507 unt/ml otic suspension (5 sources) Aminoglycoside Antibacterial, [...] BILATo n 12-27-2024 SCRN MAMM (CAD)W/YOLANDA BILAT [facility] Imaging Services [address], [place] [address] SCRN MAMM (CAD)W/YOLANDA BILAT MR#: [id number] Acct: [id number] Name: MELIDA SALAS Rep #: [id number] : 1975 F 49 From: Davi michael MD PCP: Dr. Frederick Lopez MD Status: [facility] Study: SCRN MAMM (CAD)W/YOLANDA BILAT Date of Exam: 11/30 11/23 Exam# [id number] Ordering Dr: Kellie Chavez CHIP UNLOADER CHIP UNLOADER -C EXAM: SCRN MAMM (CAD)W/YOLANDA BILAT DATE: [...] be mailed to the patient. Reading Location: [facility] CC: TANNA Chavez; Dr. Frederick Lopez MD Commercial Drafter: Signed Normal [facility] Genital Culture Comprehensiv janneth 01-20-2024 VAC Reason for Exam: vaginal irritation Normal vaginal jose alejandro isolated. No yeast, Gardnerella, Neisseria or beta-hemolytic Streptococcus isolated. Normal [facility] Comment on above: Performed By: #### M 100.3200, M100.1999, L7000.1800 #### [facility] [address] [place], [address] Chlamydia/GC MICK aptimaon CHLAMY,NUC ACID Negative Normal Negative [facility] Comment on above: Performed By: #### M 100.3200, M100.1999, L7000.1800 #### [facility] [address] [place], [address] GC BY NUC ACID Negative Normal Negative [facility] Comment on above: Result Comment: Perf ormed at: =G - [facility] [address] [id number] Operations And Intelligence Assistant: Anaya Momin MD, Phone: [phone] Performed By: #### M 100.3200, M100.1999, L7000.1800 #### [facility] [address] [place], [address] HSV 1 AND 2 IgGon 01-18-2024 HSV 1 IgG Normal [facility] Comment on above: Result Comment: RESU LT: REACTIVE Abnormal Please note reference interval change HSV-1 IgG testing performed using the [employer] HSV-1 IgG assay. Performed By: #### L 509.8000, L3890.6005, L3890.6300, L3400.1610 #### [facility] [address] [place], [address] HSV 2 IgG Normal [facility] Comment on above: Result Comment: RESU [...] [employer] HSV-2 IgG assay. Performed at: [address] [id number] Operations And Intelligence Assistant: Praveen Jacobs PhD, Phone: [phone] Performed By: #### L 509.8000, L3890.6005, L3890.6300, L3400.1610 #### [facility] [address] [facility] [place], [place], [id number] Gram Stainon 01-17-2024 GS Reason for Exam: vaginal irritation Gram Stain 1+ White Blood Cells 3+ Gram positive rods Rare Gram positive cocci No Gram negative diplococci Score = 1 Interpretation: 0-3 Normal, 4-6 Intermediate, 7-10 Positive BV Normal [facility] Comment on above: Performed By: #### M 100.3200, M100.2000, L7000.1800 #### [facility] [address] [facility] [place], [place], [id number] HIV - WCHon 01-17-2024 HIV Non-Reactive Normal Nonreactive [facility] Comment on above: Order Comment: Reaso n for Exam: std exposure Performed By: #### L 509.8000, L3890.6005, L3890.6300, L3400.1610 #### [facility] [address] [facility] [place], [place], [id number] Hepatitis C Antibodyon 01-16 Hepatitis C AB Non-Reactive Normal Nonreactive [facility] Comment on above: Order Comment: Reaso n for Exam: std exposure Result Comment: Non Reactive: < 0.8 Equivocal: >/= 0.8 to < 1.0 Reactive: >/= 1.0 The CDC requires that a reactive/equivocal HCV antibody result be sent out for confirmation. HCV Quant by PCR testing. Performed By: #### L 509.8000, L3890.6005, L3890.6300, L3400.1610 #### [facility] [address] [place], [address] L509.8000on 01-17-2024 Syphilis Abs Non-Reactive Normal [facility] Comment on above: Order Comment: Reaso n for Exam: std exposure Performed By: #### L 509.8000, L3890.6005, L3890.6300, L3400.1610 #### [facility] [address] 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 He is seeing their [...] oriented to person and oriented to place [facility] Head: normal to inspection Neck Neck: [...] patient a (more content not included)... Normal [facility] Thin prep Papanicolaou smear with manual screeningOrdered By: Dr. Lopez on 03-27-2022 Thin prep Papanicolaou smear with manual screening < 5.0 mg/L NO RANGE EST. [facility] Basophil percentageOrdered B y: Dr. Lopez on 03-12-2022 Bilirubin [Mass/Vol] 0.60 mg/dL 0.20-1.00 [facility] Comment on above: For patients on eltr ombopag therapy, use of Dimension [place] TBIL is not recommended. Chloride [Moles/Vol] 109 mmol/L 98-107 [facility] Cholesterol [Mass/Vol] 221 mg/dL <200 [facility] Comment on above: <200 mg/dL Desirable 200-240 mg/dL Borderline >240 mg/dL High Risk Glucose [Mass/Vol] 92 mg/dL 74-106 [facility] Potassium [Moles/Vol] 4.2 mmol/L 3.5-5.1 [facility] Protein [Mass/Vol] 7.1 g/dL 6.4-8.2 [facility] Sodium [Moles/Vol] 140 mmol/L 136-145 [facility] Triglyceride [Mass/Vol] 109 mg/dL <199 [facility] Comment on above: The drugs N-Acetylcy steine and Metamizole may falsely depress this assay.Serum Triglycerides Reference Interval Normal <150 mg/dL Borderline high 150 - 199 mg/dL High 200 - 499 mg/dL Very High > or = 500 mg/dL WBC (Bld) [#/Vol] 6.1 10*3/uL 4.4-11.0 [facility] Blood erythrocytes count (nu mber/volume)Ordered By: Dr. Lopez on 03-12-2022 RBC (Bld) [#/Vol] 4.97 10*6/uL 4.2-5.4 [facility] Blood hemoglobin measurement (mass/volume)Ordered By: Dr. Lopez on 03-12-2022 Hemoglobin (Bld) [Mass/Vol] 14.0 g/dL 12.0-15.0 [facility] Blood platelet mean volumeOr dered By: Dr. Lopez on 03-12-2022 Platelet mean volume (Bld) [Entitic vol] 10.5 fL 6.2-12.0 [facility] Determination of erythrocyte mean corpuscular volume (MCV)Ordered By: Dr. Lopez on 03-12-2022 MCV (RBC) [Entitic vol] 86.7 fL 81-99 [facility] Erythrocyte sedimentation ra teOrdered By: Dr. Lopez on 03-12-2022 ESR (Bld) [Velocity] 8 mm/h 0-30 [facility] Hematocrit Auto (Bld) [Volum e fraction]Ordered By: Dr. Lopez on 03-12-2022 Hematocrit (Bld) [Volume fraction] 43.1 % 37-47 [facility] Iron measurement (mass/mass) Ordered By: Dr. Lopez on 03-12-2022 Iron (Unsp spec) [Mass/Mass] 61 ug/dL 50-170 [facility] - Chemistry and C hemistry - challengeOrdered By: Dr. Lopez on 03-12-2022 Albumin [Mass/Vol] 3.6 g/dL 2.9-4.4 [facility] ALP [Catalytic activity/Vol] 46 U/L 45-117 [facility] ALT [Catalytic activity/Vol] 21 U/L 13-56 [facility] CO2 [Moles/Vol] 23.0 mmol/L 21.0-32.0 [facility] Cobalamin (Vitamin B12) [Mass/Vol] 798 pg/mL 211-911 [facility] Globulin (S) [Mass/Vol] 3.4 g/dL 2.2-4.2 [facility] Urea nitrogen/Creatinine [Mass ratio] 15.9 mg/mg 10-20 [facility] - Hematology and Cell countsOrdered By: Dr. Lopez on 03-12-2022 Erythrocyte distribution width (RBC) [Entitic vol] 39.9 fL 35.1-43.9 [facility] Erythrocyte distribution width (RBC) [Ratio] 12.8 % 11.6-14.6 [facility] MCH (RBC) [Entitic mass] 28.2 pg 27.0-32.0 [facility] MCHC Auto (RBC) [Mass/Vol]Or dered By: Dr. Lopez on 03-12-2022 MCHC (RBC) [Mass/Vol] 32.5 g/dL 32-36 [facility] No Panel InformationOrdered By: Dr. Lopez on 03-12-2022 Addendum Document Comment . [facility] Comment on above: The SPE pattern appe ars unremarkable. Evidence ofmonoclonal protein is not apparent.Performed at: [place] [facility] [address] [id number] Director: Praveen Jacobs PhD, Phone: [phone] Bgxqr-9-Rksyelfqa 0.3 g/dL 0.0-0.4 [facility] Iwycu-8-Hltjqgbzb 0.8 g/dL 0.4-1.0 [facility] Anti-Nuclear Antibody Screen Negative Negative [facility] Comment on above: Performed at: [place] [facility] [address] [id number] Director: Praveen Jacobs PhD, Phone: [phone] Estimated GFR (MDRD) Amer 71 mL/min >60 [facility] Comment on above: GFR Calc Estimated GFR (MDRD) Non-Af Amer 59 mL/min >60 [facility] Comment on above: Non- GFR Calc Gamma Globulins 1.3 g/dL 0.4-1.8 [facility] Thyroid Stimulating Hormone (TSH) 2.89 uIU/mL 0.358-3.74 [facility] Vitamin D 25-Hydroxy 35.2 ng/mL [facility] Comment on above: Vitamin D 25(OH) Sta tus Range Deficiency <20 ng/mL (50nmol/L) Insufficiency 20 - 30 ng/mL (50 - 75 nmol/L) Sufficiency 30 - 100 ng/mL (75 - 250 nmol/L) Toxicity >100 ng/mL (>250 nmol/L) Platelets bldOrdered By: Dr. Lopez on 03-12-2022 Platelets (Bld) [#/Vol] 221 10*3/uL 150-450 [facility] Protein Fractions Elph [Inte rp]Ordered By: Dr. Lopez on 03-12-2022 Protein Fractions [Interp] Comment . [facility] Comment on above: Protein electrophore sis scan will follow via computer,mail, or power saw mechanic delivery. Serum albumin to globulin ra mahad by protein electrophoresisOrdered By: Dr. Lopez on 03-12-2022 Albumin/Globulin Elph [Mass ratio] 1.0 0.7-1.7 [facility] Serum globulin measurement ( mass/volume)Ordered By: Dr. Lopez on 03-12-2022 Globulin (S) [Mass/Vol] 3.6 g/dL 2.2-3.9 [facility] Serum or plasma albumin ezio urement (mass/volume)Ordered By: Dr. Lopez on 03-12-2022 Albumin [Mass/Vol] 3.7 g/dL 3.2-5.0 [facility] Serum or plasma albumin/glob ulin mass ratioOrdered By: Dr. Lopez on 03-12-2022 Albumin/Globulin [Mass ratio] 1.1 {ratio} 0.9-2.4 [facility] Serum or plasma beta globuli n measurement by electrophoresis (mass/volume)Ordered By: Dr. Lopez on 03-12-2022 Beta globulin Elph [Mass/Vol] 1.2 g/dL 0.7-1.3 [facility] Serum or plasma calcium ezio urement (mass/volume)Ordered By: Dr. Lopez on 03-12-2022 Calcium [Mass/Vol] 9.0 mg/dL 8.5-10.1 [facility] Serum or plasma cholesterol in HDL measurement (mass/volume)Ordered By: Dr. Lopez on 03-12-2022 Cholesterol in HDL [Mass/Vol] 55 mg/dL >40 [facility] Comment on above: The drugs N-Acetylcy steine and Metamizole may falsely depress this assay. Reference Range HDL <40 mg/dL Low HDL Cholesterol HDL >or= 60 mg/dL High HDL Cholesterol Serum or plasma cholesterol in VLDL measurement (mass/volume)Ordered By: Dr. Lopez on 03-12-2022 Cholesterol in VLDL [Mass/Vol] 22 mg/dL 5-40 [facility] Serum or plasma creatinine m easurement (mass/volume)Ordered By: Dr. Lopez on 03-12-2022 Creatinine [Mass/Vol] 1.07 mg/dL 0.55-1.02 [facility] Comment on above: The validity of the calculated GFR & GFRAA in patients over 70 years has not been determined. Clinical correlation is essential. Serum or plasma low density lipoprotein (LDL) cholesterol measurement (mass/volume)Ordered By: Dr. Lopez on 03-12-2022 Cholesterol in LDL [Mass/Vol] 144 mg/dL 0-130 [facility] Serum or plasma urea nitroge n measurement (mass/volume)Ordered By: Dr. Lopez on 03-12-2022 Urea nitrogen [Mass/Vol] 17 mg/dL 7-18 [facility] Thin prep Papanicolaou smear with manual screeningOrdered By: Dr. Lopez on 03-12-2022 Thin prep Papanicolaou smear with manual screening 16 U/L 15-37 [facility] Thin prep Papanicolaou smear with manual screening 8 5-15 [facility] Thin prep Papanicolaou smear with manual screening See comment [facility] Comment on above: Result: Not Observed Total protein bloodOrdered B y: Dr. Lopez on 03-12-2022 Protein [Mass/Vol] 7.2 g/dL 6.0-8.5 [facility] MRI Lumbar Spine w/oon 09-25 MRI [...] physician: The radiologist can be reached at [phone] if you would like to discuss the findings. 1057 Normal [facility] Career And Guidance Counselor Office Visit: est annualon 0 11-23-2016 Fall risk assessment No Invalid Interpretation Code [facility] Protein [facility] conc [facility] Protein mass conc T [facility] Tobacco smoking status PRIS Never Invalid Interpretation Code [facility] Tobacco smoking status [facility] Never smoker Invalid Interpretation Code [facility] Office Visit: est annualon 0 03-01-2015 General categories Cyto stain Interp (Cervical or vaginal smear or scraping) Normal Invalid Interpretation Code [facility] Vital Signs Date Time Vital Sign Value Performing Clinician Facility 01-13-2022 06:57-0500 Body height 170.[address] Femi Lopez Work Phone: [facility] 01-13-2022 06:57-0500 Body mass index (BMI) [Ratio] 28.6 kg/m2 Dr. Femi Lopez Work Phone: [facility] 01-13-2022 06:57-0500 Body temperature 98.5 [degF] Dr. Femi Lopez Work Phone: [facility] 01-13-2022 06:57-0500 Body weight [address] Femi Lopez Work Phone: [facility] 01-13-2022 06:57-0500 Diastolic blood pressure 70 mm[Hg] Dr. Femi Lopez Work Phone: [facility] 01-13-2022 06:57-0500 Heart rate 78 /min Dr. Femi Lopez Work Phone: [facility] 01-13-2022 06:57-0500 Respiratory rate 17 /min Dr. Femi Lopez Work Phone: [facility] 01-13-2022 06:57-0500 SaO2% (BldA) [Mass fraction] 99 % Dr. Femi Lopez Work Phone: [facility] 01-13-2022 06:57-0500 Systolic blood pressure 124 mm[Hg] Dr. Femi Lopez Work Phone: [facility] 01-07-2022 08:10-0500 Body mass index (BMI) [Ratio] 29.3 kg/m2 Dr. Femi Lopez Work Phone: [facility] 01-07-2022 08:10-0500 Body weight 82.[address] Femi Lopez Work Phone: [facility] 01-07-2022 08:10-0500 Diastolic blood pressure 84 mm[Hg] Dr. Femi Lopez Work Phone: [facility] 01-07-2022 08:10-0500 Systolic blood pressure 122 mm[Hg] Dr. Femi Lopez Work Phone: [facility] 11-23-2016 13:35-0400 BMI (Body Mass Index) 28.63 kg/m2 Kellie Chavez NP [facility] 11-23-2016 13:35-0400 Body Temperature 97.6 [degF] Kellie Chavez CHIP UNLOADER [facility] 11-23-2016 13:35-0400 Body Temperature 97.59 [degF] Kellie Chavez CHIP UNLOADER [facility] 11-23-2016 13:35-0400 BP Diastolic 73 mm[Hg] Kellie Chavez CHIP UNLOADER [facility] 11-23-2016 13:35-0400 BP Systolic 106 mm[Hg] Kellie Chavez CHIP UNLOADER [facility] 11-23-2016 13:35-0400 Height 167.64 cm Kellie Chavez NP [facility] 11-23-2016 13:35-0400 Pulse (Heart Rate) 72 /min Kellie Chavez NP [facility] 11-23-2016 13:35-0400 Respiratory Rate 16 /min Kellie Chavez NP [place] [facility] 11-23-2016 13:35-0400 Weight 80.47 kg Kellie Chavez NP [facility] Encounters Encounter Date Encounter Type Care Provider Facility Start: 12-27-2024 End: 12-27-2024 ambulatory Frederick Lopez Facility:[facility] Start: 01-17-2024 End: 01-17-2024 ambulatory Frederick Lopez Facility:[facility] Start: 01-17-2024 End: 01-17-[facility] Start: 2022 End: 2022 ambulatory [facility] Work Phone: Start: 2022 End: 2022 Patient encounter procedure [facility] Work Phone: Start: 03-27-2022 End: 03-27-[address] Femi Lopez Work Phone: [facility] Work Phone: Start: 03-27-2022 End: 03-27-[address] Femi Lopez Work Phone: [facility]-Laboratory, Specimen Start: 03-20-2022 End: 03-20-[address] Femi Lopez Work Phone: [facility] Work Phone: Start: 03-20-2022 End: 03-20-[address] Femi Lopez Work Phone: [facility] Start: 03-12-2022 End: 03-12-[address] Femi Lopez Work Phone: [facility] Work Phone: Start: 03-12-2022 End: 03-12-[address] Femi Lopez Work Phone: [facility] Start: 02-27-2022 End: 02-27-[address] Femi Lopez Work Phone: [facility] Work Phone: Start: 02-27-2022 End: 02-27-[address] Femi Lopez Work Phone: [facility] Start: 01-13-2022 End: 01-13-[address] Femi Lopez Work Phone: [facility] Start: 01-07-2022 End: 01-07-[address] Femi Lopez Work Phone: [facility] Procedures Date Procedure Procedure Detail Performing Clinician Start: 2022 Screening mammography Start: 03-20-[address] Femi del toro Work Phone: Start: 02-27-[address] Femi barker Work Phone: Start: 11-23-2016 Gynecologic examination Routine gynecological examination Kellie Monterey CHIP UNLOADER Start: 11-23-2016 Screening mammography Mammogram yearly screening Kellie Monterey CHIP UNLOADER Start: 11-23-2016 End: 11-23-2016 Documentation of current medications Kellie Kathy CHIP UNLOADER Start: 11-23-2016 Gynecologic examination Routine gynecological examination Kellie Kathy CHIP UNLOADER Start: 11-23-2016 Screening mammography Mammogram yearly screening Kellie Monterey CHIP UNLOADER Plan of Treatment Date Care Activity Detail Author Start: 11-23-2016 End: 11-23-2016 Mammogram, screening Mammogram, Screening, both breasts [facility] Start: 11-23-2016 End: 11-23-2016 Appointment Appointment [facility] Start: 11-23-2016 End: 11-23-2016 Mammogram, screening Mammogram, Screening, both breasts [facility] Payers Date Payer Category Payer Self-pay [id number] 2023 Unknown [id number] 2016 Unknown [employer] [id number] [address] [facility] P[employer] [id number] Unknown [id number] Unknown [id number] Unknown [id number] Social History Date Type Detail Facility Tobacco smoking stat us NHIS Unknown if ever smoked [facility] Work Phone: Start: 1975 Sex Assigned At Female [facility] Start: 01-13-2022 End: 01-13-2022 Tobacco smoking status NHIS Unknown if ever smoked [facility] Progress note 03-14-2021 Note Date & Type Note Facility 03-14-2021 Note HNO ID: [id number] Author: Pamela Pete MA Service: ? Author Type: Correction Officer Head Type: Progress Notes Filed: 03/14/2021 4:10 PM Note Text: POPULATION HEALTH NAVIGATION OUTREACH Action/FYI PCP OFF BOARDING OUTREACH Attempt # 1 LMOVM Attempt # 2 Sent [employer] Message. Encounter closed. Contact made with patient or family member? NO Pt identified by name and : NO Outreach Outcome/Action Unable to reach patient: Left message [employer] science[employer] message sent Reason for Outreach Attribution: Provider [...] Pete MA March 14, 2021 4:08 PM [facility] Clinical Note 03-14-2021 Note Date & Type Note Facility 03-14-2021 Note Patient Outreach (NE TNAV) MELIDA SALAS ([id number]) 1975 F Date Time Provider Department 03/14/21 PAMELA PETE During your visit today, we recorded the following information about you: Pamela Pete MA 03/14/2021 4:10 PM Signed POPULATION HEALTH NAVIGATION OUTREACH Action/ PCP OFF BOARDING OUTREACH Attempt # 1 LMOVM Attempt # 2 Sent [employer] Message. Encounter closed. Contact made with patient or family member? NO Pt identified by name and : NO Outreach Outcome/Action Unable to reach patient: Left message [employer] message sent Reason for Outreach Attribution: Provider [...] Encounter Status:Closed by PAMELA PETE on 03/14/21 [facility] Clinical Note 09-20-2020 Note Date & Type Note Facility 09-20-2020 Note Patient Outreach (IN TMMN) MELIDA SALAS ([id number]) 1975 F Date Time Provider Department 09/20/20 [...] for screening mammogram for breast cancer [Z12.31] Order(s):[facility] SCREENING [[id number]] Order #: [id number] FUTURE Prescriptions as of 09/23/2020 - albuterol [...] Encounter Status:Closed by CHANCE LARAUSER on 09/23/20 [facility] Evaluation note Note Date & Type Note Facility Evaluation note No assessment information availa ble [facility] Work Phone: Evaluation note Note Date & Type Note Facility Evaluation note Diagnosis Onset Date Encounter for routine gyneco logical examination noneactive Acute otitis externa of left ear acute [facility] Work Phone: Summary Purpose Family History No Family History Records Found Relationship Condition Age at Onset Recorded Date/T ramona mother Diabetes mellitus Unknown Advance Directives No Advanced Directives Records FoundNo Advanced Directives Records FoundNo Advanced Directives Records Found Chief Complaint and Reason for Visit 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 Reason for Visit Encounter for routin e gynecological examination Acute otitis externa of left ear 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 DECREASED RENAL FUNCTION Reason for Visit Encounter for routin e gynecological examination Acute otitis externa of left ear Chief Complaint SCREENING Additional Source Comments INFORMATION SOURCE (unrecogn ized section and content) DATE CREATED AUTHOR 04/13/2021 [facility] DATE CREATED AUTHOR AUTHOR'S ORGANIZ ATION 09/30/2021 [facility] d[facility] Specialist DATE CREATED AUTHOR AUTHOR'S ORGANIZ ATION 01/05/2025 [facility] Goals (unrecognized section and content) [...] Provider, Refe rring Provider Active Kellie Chavez CHIP UNLOADER, CHIP UNLOADER-C Attending Provider Active Team Status: Inactive Member Role Status Dates Dr. Femi Lopez MD Primary Care Provider, Refe rring Provider Active Jaskaran GREENE, PA Attending Provider Active Team Status: Inactive Member Role Status Dates Dr. Femi Lopez MD Primary Care Provider Activ deep Chavez CHIP UNLOADER, CHIP UNLOADER-C Attending Provider, Referring Provider Active Team Status: [...] BE BASED ON THE PRIMARY CLINICAL RECORDS. [facility] [employer] provides no warranty or guarantee of the accuracy or completeness of information in this document.
[2025-01-29 00:07] LABS: Chlamydia By Nucleic Acid AMP Negative (Negative); Gonococcus By Nucleic Acid AMP Negative (Negative)
[2025-01-29 15:08] LABS: HPV APTIMA, High Risk Negative (Negative)
== END | disposition home or self-care (01) ==
PROVIDERS: PCP Family Medicine; Referring Provider Nurse Practitioner Women's Health; Visit Provider Nurse Practitioner Women's Health
DX: Z12.4 Encounter for screening for malignant neoplasm of cervix (principal); Z11.3 Encounter for screening for infections with a predominantly sexual mode of transmission
CPT/HCPCS: 87491; 87591; 87624; 88175; G0145